=== PATIENT | male | born 1950 | race Caucasian/White ===

== ENCOUNTER → 2016-12-12 | Outpatient (CLI) | payer MEDICARE ==
--- NOTE | 2016-12-12 13:11 | NM ---
EXAMINATION TYPE: NM pul vent and perfuse DATE OF EXAM: 12/12/2016 COMPARISON: EXAMINATION TYPE: NM pul vent and perfuse DATE OF EXAM: 12/12/2016 COMPARISON: NONE HISTORY: R06.89 Difficulty Breathing TECHNIQUE: Utilizing inhalation of 37.6 mCi Tc 99m DTPA aerosol and intravenous injection of 5.5 mCi of Tc 99m MAA, ventilation and perfusion images are acquired post injection in multiple projections. FINDINGS: There is severe central accumulation of radiotracer on the ventilation portion of the study. Multiple matched ventilation/perfusion defects are identified on the perfusion portion of the study. No misma tch perfusion defects are seen. IMPRESSION: Intermediate probability for pulmonary embolism.
--- NOTE | 2016-12-12 13:36 | CT ---
EXAMINATION TYPE: CT chest wo con DATE OF EXAM: 12/12/2016 COMPARISON: Outside radiographs 12/12/2016 HISTORY: 66-year-old male difficulty breathing TECHNIQUE: Contiguous axial scanning of the chest without IV contrast. Coronal and sagittal reconstru ctions performed. CT DLP: 692 mGycm Automated exposure control for dose reduction was used. FINDINGS: The heart is normal size. There is small pericardial effusion. Coronary vessel calcifications are pre sent in remarkable for coronary artery disease. Aorta is normal caliber with a conventional arch vessel branching anatomy and mild atherosclerotic ca lcifications. Scattered nonenlarged mediastinal lymph nodes. No thoracic lymphadenopathy by CT size criteria. Mild diffuse bronchial wall thickening and mild centrilobular emphysema. There is some patchy density at the inferior lingula, likely some atelectasis. Otherwise, no consolidation or pleural effusion. Visualized upper abdomen shows 1.6 cm low-density nodularity of the left adrenal gland with density o f 8 Hounsfield units suggestive of a benign lipid rich adrenal adenoma. Moderate stool burden. Bones: Endplate spondylosis mid to lower thoracic spine. IMPRESSION: 1. COPD WITH MILD EMPHYSEMA. THERE IS SOME PATCHY ATELECTASIS OR MINIMAL EARLY INFILTRATE IN THE INFE RIOR [place]. 2. NOTE THAT AN INTERMEDIATE PROBABILITY FOR PULMONARY EMBOLUS RANGES FROM 20 TO 80%. IF THERE REMAIN S CLINICAL SUSPICION FOR PULMONARY EMBOLUS, RISK-BENEFIT ASSESSMENT TO WHETHER TO PROCEED WITH A C TA SHOULD BE MADE. 3. SMALL PERICARDIAL EFFUSION.
== END | disposition home or self-care (01) ==
LOC: RADNMMAIN 11:49
PROVIDERS: ATTEND Family Medicine
DX: J43.9 Emphysema, unspecified (principal); I31.3 Pericardial effusion (noninflammatory); R06.89 Other abnormalities of breathing
CPT/HCPCS: 71250; 78582; A9540; A9567

== ENCOUNTER 2016-12-16 12:30 | Inpatient (IN) | payer MEDICARE ==
[2016-12-16] MEDS ORDERED: SODIUM CHLORIDE 0.9% 500 ML IV STA (12:53)
--- NOTE | 2016-12-16 12:59 | ED ---
General Adult HPI - General Chief complaint: Recheck/Abnormal Lab/Rx Stated complaint: Severe Headache, Poss Blood Clot Time Seen by Provider: 12/16/16 12:30 Source: patient, family, RN notes reviewed Mode of arrival: wheelchair Limitations: no limitations - History of Present Illness Initial comments: This is a 66-year-old male who presents emergency Department complaining initially having abdominal pain a month ago and progressed into difficulty breathing and weakness. Over the last couple of weeks he is barely been eating according to his he continues to get weaker and weaker. Patient states she went to the doctor that they did some lab work had a CAT scan done and then the sifting operator showed up at his house today to tell him to come to the emergency department immediately. Patient states he continues to feel weak today but he would not come to the emergency department on his own. Patient states he also has been getting intermittent headaches over the last month. Patient doesn't know why he was sent to the emergency department. He currently complains of a mild headache and generalized weakness and loss of appetite. Patient states he is occasionally short of breath as well. - Related Data Home Medications Medication Instructions Recorded Confirmed Atenolol [Tenormin] 50 mg PO DAILY 12/16/16 12/16/16 Ciprofloxacin HCl [Cipro] 500 mg PO Q12HR 12/16/16 12/16/16 Allergies Allergy/AdvReac Type Severity Reaction Status Date / Time Iodinated Contrast- Oral and Allergy Nausea & Verified 12/16/16 13:02 IV Dye Vomiting Review of Systems ROS Statement: Those systems with pertinent positive or pertinent negative responses have been documented in the HPI. ROS Other: All systems not noted in ROS Statement are negative. Past Medical History Past Medical History: Chest Pain / Angina, Hyperlipidemia, Hypertension, Myocardial Infarction ([place]) History of Any Multi-Drug Resistant Organisms: None Reported Past Surgical History: Heart Catheterization With Stent, Joint Replacement, Orthopedic Surgery Past Psychological History: No Psychological Hx Reported Smoking Status: Former smoker Past Alcohol Use History: Occasional Past Drug Use History: None Reported General Exam - General Exam Comments Initial Comments: GENERAL: Patient is well-developed and well-nourished. Patient is nontoxic and well- hydrated and is in mild distress. ENT: Neck is soft and supple. No significant lymphadenopathy is noted. Oropharynx is clear. Moist mucous membranes. Neck has full range of motion without eliciting any pain. EYES: The sclera were anicteric and conjunctiva were pink and moist. Extraocular movements were intact and pupils were equal round and reactive to light. Eyelids were unremarkable. PULMONARY: Unlabored respirations. Good breath sounds bilaterally. No audible rales rhonchi or wheezing was noted. CARDIOVASCULAR: Patient has been irregular heartbeat and is tachycardic at about 130 beats minute ABDOMEN: Soft and nontender with normal bowel sounds. No palpable organomegaly was noted. There is no palpable pulsatile mass. SKIN: Skin is clear with no lesions or rashes and otherwise unremarkable. NEUROLOGIC: Patient is alert and oriented x3. Cranial nerves II through XII are grossly intact. Motor and sensory are also intact. Normal speech, volume and content. Symmetrical smile. MUSCULOSKELETAL: Normal extremities with adequate strength and full range of motion. No lower extremity swelling or edema. No calf tenderness. LYMPHATICS: No significant lymphadenopathy is noted PSYCHIATRIC: Normal psychiatric evaluation. Normal interpersonal interactions appears functionally intact in deals appropriately with others. No signs of depression. No signs of anxiety. Limitations: no limitations Course Vital Signs 12/16/16 12/16/16 12/16/16 12:31 13:03 13:45 Temperature 97.7 F Pulse Rate 82 136 H 134 H Respiratory 20 20 20 Rate Blood Pressure 105/68 138/97 156/92 O2 Sat by Pulse 97 94 L 96 Oximetry 12/16/16 14:04 Temperature Pulse Rate 126 H Respiratory 20 Rate Blood Pressure 132/77 O2 Sat by Pulse 98 Oximetry Medical Decision Making - Medical Decision Making EKG shows atrial flutter with a variable AV block with PVCs at a rate of 130 bpm Vipin on a 36 Q-T intervals 348 QTC is 527. Patient's EKG shows no ST segment elevation or depression. - Lab Data Result diagrams: 12/16/16 12:55 12/16/16 12:55 Lab Results 12/16/16 12/16/16 12/16/16 Range/Units 12:55 12:55 12:55 WBC 14.1 H (3.8-10.6) k/uL RBC 3.88 L (4.30-5.90) m/uL Hgb 11.5 L (13.0-17.5) gm/dL Hct 35.0 L (39.0-53.0) % MCV 90.4 (80.0-100.0) fL MCH 29.6 (25.0-35.0) pg MCHC 32.7 (31.0-37.0) g/dL RDW 13.6 (11.5-15.5) % Plt Count 504 H (150-450) k/uL Neutrophils % 88 % Lymphocytes % 7 % Monocytes % 4 % Eosinophils % 1 % Basophils % 0 % Neutrophils # 12.3 H (1.3-7.7) k/uL Lymphocytes # 1.0 (1.0-4.8) k/uL Monocytes # 0.5 (0-1.0) k/uL Eosinophils # 0.1 (0-0.7) k/uL Basophils # 0.0 (0-0.2) k/uL PT (9.0-12.0) sec INR (<1.2) APTT (22.0-30.0) sec D-Dimer (<0.60) mg/L FEU Sodium 141 (137-145) mmol/L Potassium 2.5 L* (3.5-5.1) mmol/L Chloride 96 L (98-107) mmol/L Carbon Dioxide 30 (22-30) mmol/L Anion Gap 15 mmol/L BUN 28 H (9-20) mg/dL Creatinine 0.83 (0.66-1.25) mg/dL Est GFR (MDRD) Af Amer >60 (>60 ml/min/1.73 sqM) Est GFR (MDRD) Non-Af >60 (>60 ml/min/1.73 sqM) Glucose 188 H (74-99) mg/dL Calcium 9.8 (8.4-10.2) mg/dL Magnesium 1.5 L (1.6-2.3) mg/dL Total Bilirubin 0.7 (0.2-1.3) mg/dL AST 35 (17-59) U/L ALT 97 H (21-72) U/L Alkaline Phosphatase 177 H (38-126) U/L Total Creatine Kinase 35 L (55-170) U/L CK-MB (CK-2) 1.6 (0.0-2.4) ng/mL CK-MB (CK-2) Rel Index 4.6 Troponin I 0.042 H* (0.000-0.034) ng/mL Total Protein 6.2 L (6.3-8.2) g/dL Albumin 3.2 L (3.5-5.0) g/dL 12/16/16 Range/Units 12:55 WBC (3.8-10.6) k/uL RBC (4.30-5.90) m/uL Hgb (13.0-17.5) gm/dL Hct (39.0-53.0) % MCV (80.0-100.0) fL MCH (25.0-35.0) pg MCHC (31.0-37.0) g/dL RDW (11.5-15.5) % Plt Count (150-450) k/uL Neutrophils % % Lymphocytes % % Monocytes % % Eosinophils % % Basophils % % Neutrophils # (1.3-7.7) k/uL Lymphocytes # (1.0-4.8) k/uL Monocytes # (0-1.0) k/uL Eosinophils # (0-0.7) k/uL Basophils # (0-0.2) k/uL PT 11.7 (9.0-12.0) sec INR 1.2 H (<1.2) APTT 24.4 (22.0-30.0) sec D-Dimer 1.25 H (<0.60) mg/L FEU Sodium (137-145) mmol/L Potassium (3.5-5.1) mmol/L Chloride (98-107) mmol/L Carbon Dioxide (22-30) mmol/L Anion Gap mmol/L BUN (9-20) mg/dL Creatinine (0.66-1.25) mg/dL Est GFR (MDRD) Af Amer (>60 ml/min/1.73 sqM) Est GFR (MDRD) Non-Af (>60 ml/min/1.73 sqM) Glucose (74-99) mg/dL Calcium (8.4-10.2) mg/dL Magnesium (1.6-2.3) mg/dL Total Bilirubin (0.2-1.3) mg/dL AST (17-59) U/L ALT (21-72) U/L Alkaline Phosphatase (38-126) U/L Total Creatine Kinase (55-170) U/L CK-MB (CK-2) (0.0-2.4) ng/mL CK-MB (CK-2) Rel Index Troponin I (0.000-0.034) ng/mL Total Protein (6.3-8.2) g/dL Albumin (3.5-5.0) g/dL Disposition Clinical Impression: Hypokalemia, Weakness, Anorexia Disposition: ADMITTED IP TO THIS HOSP Referrals: Kermit Scott MD [Primary Care Provider] - 1-2 days Time of Disposition: 15:32
[2016-12-16 13:12] LABS: Basophils % (A) 0 %; CH 30.3; CHCM 33.6; Eosinophils # (A) 0.1 k/uL (0-0.7); Eosinophils % (A) 1 %; HDW 3.04; HGB 11.5 gm/dL (13.0-17.5); Luc # (Auto) 0.19; Luc % (Auto) 1; Lymphocytes % (A) 7 %; MCH 29.6 pg (25.0-35.0); MCHC 32.7 g/dL (31.0-37.0); MCV 90.4 fL (80.0-100.0); Mean Platelet Volume 7.7; Monocytes # (A) 0.5 k/uL (0-1.0); Monocytes % (A) 4 %; Neutrophils # (A) 12.3 k/uL (1.3-7.7); Neutrophils % (A) 88 %; RBC 3.88 m/uL (4.30-5.90); RDW 13.6 % (11.5-15.5); WBC 14.1 k/uL (3.8-10.6); WBC (Perox) 14.63
[2016-12-16 13:22] LABS: INR 1.2 (<1.2); Partial Thromboplastin Time 24.4 sec (22.0-30.0); Prothrombin Time 11.7 sec (9.0-12.0)
--- NOTE | 2016-12-16 13:25 | XR ---
EXAMINATION TYPE: XR chest 2V DATE OF EXAM: 12/16/2016 COMPARISON: 12/12/2016 HISTORY: Weakness TECHNIQUE: Frontal and lateral views of the chest are obtained. FINDINGS: There is no heart failure nor confluent pneumonic infiltrate. There is suboptimal inspirat ion. There are chest leads. Costophrenic angles are clear. Bony thorax is intact. IMPRESSION: Poor inspiration. Otherwise negative exam. Inspiration is less than last exam.
[2016-12-16 13:31] LABS: ALT 97 U/L (21-72); AST 35 U/L (17-59); Alkaline Phosphatase 177 U/L (38-126); Anion Gap 15 mmol/L; Blood Urea Nitrogen 28 mg/dL (9-20); Calcium 9.8 mg/dL (8.4-10.2); Carbon Dioxide 30 mmol/L (22-30); Chloride 96 mmol/L (98-107); Glucose 188 mg/dL (74-99); Magnesium 1.5 mg/dL (1.6-2.3); Non-African American GFR(MDRD) >60 (>60 ml/min/1.73 sqM); Sodium 141 mmol/L (137-145); Total Bilirubin 0.7 mg/dL (0.2-1.3); Total Protein 6.2 g/dL (6.3-8.2)
[2016-12-16 13:38] LABS: Potassium 2.5 mmol/L (3.5-5.1)
[2016-12-16] MEDS ORDERED: POTASSIUM CHLORIDE ER 20 MEQ TAB.ER PO STA (13:40)
[2016-12-16] MEDS ORDERED: RX INFO: IV CONTRAST WAS GIVEN 1 EACH MISC MISCELLANE PRN (13:41)
[2016-12-16 13:48] LABS: Creatine Kinase MB 1.6 ng/mL (0.0-2.4)
[2016-12-16] MEDS ORDERED: FAMOTIDINE 20 MG/2 ML VIAL IV STA (13:49)
[2016-12-16] MEDS ORDERED: methylPREDNISolone SOD SUCCI 125 MG/2 ML VIAL IV STA (13:49)
[2016-12-16] MEDS ORDERED: diphenhydrAMINE 50 MG/ML 1 ML VIAL IVP STA (13:49)
[2016-12-16 13:51] LABS: Troponin I 0.042 ng/mL (0.000-0.034)
[2016-12-16] MEDS: POTASSIUM CHLORIDE 20 MEQ, LIDOCAINE 2% INJ 20 MG in SODIUM CHLORIDE 0.9% 100 ML IVPB SCH ×2 (14:00→16:20)
--- NOTE | 2016-12-16 14:44 | CT ---
EXAMINATION TYPE: CT chest angio for PE DATE OF EXAM: 12/16/2016 COMPARISON: NONE HISTORY: Patient poor historian. Patient unresponsive at time of exam. CT DLP: 387 mGycm Automated exposure control for dose reduction was used. CONTRAST: CT Chest for pulmonary embolism performed with with IV Contrast, patient injected with 100 mL of Omni paque 300. FINDINGS: There are 3-D post processed images. There is no pleural effusion. Lungs are clear of consolidation. Heart is enlarged. I see no definite filling defects in the pulmonary arteries. There are a few mediastinal lymph nodes that measure up to 1 cm. Thoracic aorta is atheromatous. There is no evidence of aneurysm. There are no hilar masses. IMPRESSION: No evidence of pulmonary embolism. Cardiomegaly. Mild fibrotic changes at the lung bases. Cardiomegal y.
[2016-12-16] MEDS ORDERED: SODIUM CHLORIDE 0.9% 1,000 ML IV ONE (15:32)
[2016-12-16 15:52] LABS: Appearance,Urine Clear (Clear); Bilirubin,Urine Negative (Negative); Glucose,Urine (UA) Negative (Negative); Ketones,Urine Negative (Negative); Leukocyte Esterase,Urine Negative (Negative); Nitrite,Urine Negative (Negative); PH, Urine 6.5 (5.0-8.0); Protein,Urine Negative (Negative); Specific Gravity,Urine 1.044 (1.001-1.035); UA Billing (MACRO vs. MICRO) CHEM; Urobilinogen,Urine <2.0 mg/dL (<2.0)
--- NOTE | 2016-12-16 16:04 | CT ---
EXAMINATION TYPE: CT brain wo con DATE OF EXAM: 12/16/2016 COMPARISON: NONE HISTORY: Patient complains of headache. CT DLP: 802.7 mGycm Automated exposure control for dose reduction was used. FINDINGS: There is some cerebral cortical atrophy. There is moderate patchy hypodensity in the periventricular white matter. There is no mass effect nor midline shift. There is no sign of intracranial hemorrhage. The calvarium is intact. There is mild mucosal thickening in the ethmoid air cells. There is mucosal thickening in left maxillary sinus. IMPRESSION: CEREBRAL ATROPHY AND CHRONIC SMALL VESSEL ISCHEMIA. 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 MILD SINUSITIS.
[2016-12-16] MEDS ORDERED: IPRATROPIUM-ALBUTEROL 3 ML NEB INHALATION PRN (19:14)
--- NOTE | 2016-12-16 19:55 | US ---
EXAMINATION TYPE: US abdomen complete DATE OF EXAM: 12/16/2016 COMPARISON: NONE CLINICAL HISTORY: no appetite, abdominal discomfort. larger habitus EXAM MEASUREMENTS: Liver Length: 21.1 cm Gallbladder Wall: 0.2 cm CBD: 0.4 cm Spleen: 12.7 cm Right Kidney: 11.9 x 5.4 x 5.5 cm Left Kidney: 12.7 x 6.7 x 5.2 cm Some exam limitations, stat portable, pt ate about 2 1/2 hrs ago. Increased bowel gas. Pancreas: Obscured by bowel gas Liver: hepatomegaly Gallbladder: not distended, pt not npo, there are a couple small polyps wall thickening is not prese nt. Wall echo shadow however may be present. Clinical correlation for acute cholecystitis is recommen ded. Negative sonographic Guadarrama's sign suggests this may not be present. Evidence for sonographic Guadarrama's sign: no CBD: wnl Spleen: wnl Right Kidney: wnl Left Kidney: some cortical lobulation otherwise wnl Upper IVC: wnl Abd Aorta: Obscured by overlying bowel gas IMPRESSION: 1. There may be a wall echo shadow complex within the gallbladder wall. However gallbladder wall thic kening or Guadarrama's sign are not evident. Clinical correlation is recommended for cholecystitis. This may be incompletely distended gallbladder. 2. Couple small polyps may be within the gallbladder.
[2016-12-16 20:01] LABS: Creatine Kinase MB 1.3 ng/mL (0.0-2.4)
[2016-12-16 20:03] LABS: Troponin I 0.045 ng/mL (0.000-0.034)
--- NOTE | 2016-12-16 20:05 | P.CON ---
Consult Note - . Consult date: 12/16/16 Assessment/Plan:: *Live* [facility] [address], [place] [address] General Medical Problem Patient Name: Jaskaran Hess Date of : 1950 Patient Status: Inpatient Attending Provider: Riley Ornelas General Adult HPI - General Chief complaint: Abdominal discomfort and pain started 4 weeks ago lately has been having more shortness of breath with cough started a week ago Source: patient, family, emergency department notes reviewed Limitations: no limitations - History of Present Illness Initial comments: This is a 66-year-old male who presents emergency Department complaining initially having abdominal pain a month ago and progressed into difficulty breathing and weakness. Over the last couple of weeks he is barely been eating according to his he continues to get weaker and weaker. Patient states she went to the doctor that they did some lab work had a CAT scan done and then the showed up at his house today to tell him to come to the emergency department immediately. Patient states he continues to feel weak today but he would not come to the emergency department on his own. Patient states he also has been getting intermittent headaches over the last month. Patient doesn't know why he was sent to the emergency department. He currently complains of a mild headache and generalized weakness and loss of appetite. Patient states he is occasionally short of breath as well. Patient however has been seen by a primary care provider Dr. Scott 3 or 4 days ago lab works were ordered the labs were noted to be abnormal and patient was advised to go to the emergency department however it appears that there was no response and the tar and ammonia pump operator's office was called. 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 Patient also consumed extensive amount of alcohol on a daily basis . Patient expresses that he is usually not interested in medical care and does not like to take medications In addition to above the patient feels that his tummy is more swelling than usual and is compressing the chest and causing him to be more short of breath. His pain is predominantly in the lower part of the abdomen bilaterally he denies any nausea vomiting or diarrhea does have some cough with clear thick sputum production, denies any headache now desired denies any night sweats or fever or chills he did loss close to about 10-15 pounds in last 1 month he denies any dizziness lightheadedness but does feel very weak in general, patient also has been consuming very small amount of food lately and usually the morning he 1 meal a day - Related Data Home Medications Medication Instructions Recorded Confirmed Atenolol [Tenormin] 50 mg PO DAILY 12/16/16 12/16/16 Ciprofloxacin HCl [Cipro] 500 mg PO Q12HR 12/16/16 12/16/16 Allergies Allergy/AdvReac Type Severity Reaction Status Date / Time Iodinated Contrast- Oral and Allergy Nausea & Verified 12/16/16 13:02 IV Dye Vomiting Review of Systems ROS Statement: Those systems with pertinent positive or pertinent negative responses have been documented in the HPI. ROS Other: All systems not noted in ROS Statement are negative. Past Medical History Past Medical History: Chest Pain / Angina, Hyperlipidemia, Hypertension, Myocardial Infarction ([place]) History of Any Multi-Drug Resistant Organisms: None Reported Past Surgical History: Heart Catheterization With Stent, Joint Replacement, Orthopedic Surgery Past Psychological History: No Psychological Hx Reported Smoking Status: Former smoker, smoked about 1-2 packs per day for over 45-50 years Past Alcohol Use History: Regular, denies any substance use Past Drug Use History: None Reported General Exam GENERAL: Patient is well-developed and well-nourished. Patient is nontoxic and well- hydrated and is in mild distress. ENT: Neck is soft and supple. No significant lymphadenopathy is noted. Oropharynx is clear. Moist mucous membranes. Neck has full range of motion without eliciting any pain. EYES: The sclera were anicteric and conjunctiva were pink and moist. Extraocular movements were intact and pupils were equal round and reactive to light. Eyelids were unremarkable. PULMONARY: Unlabored respirations. Good breath sounds bilaterally. Bilateral audible rhonchi and wheezing was noted during both inspiratory and expiratory phase. CARDIOVASCULAR: Patient has been irregular heartbeat and is tachycardic at about 130 beats minute ABDOMEN: Soft and nontender with normal bowel sounds. No palpable organomegaly was noted. There is no palpable pulsatile mass. SKIN: Skin is clear with no lesions or rashes and otherwise unremarkable. NEUROLOGIC: Patient is alert and oriented x3. Cranial nerves II through XII are grossly intact. Motor and sensory are also intact. Normal speech, volume and content. Symmetrical smile. MUSCULOSKELETAL: Normal extremities with adequate strength and full range of motion. No lower extremity swelling or edema. No calf tenderness. LYMPHATICS: No significant lymphadenopathy is noted PSYCHIATRIC: Normal psychiatric evaluation. Normal interpersonal interactions appears functionally intact in deals appropriately with others. No signs of depression. No signs of anxiety. Limitations: no limitations Course Vital Signs 12/16/16 12/16/16 12/16/16 12:31 13:03 13:45 Temperature 97.7 F Pulse Rate 82 136 H 134 H Respiratory 20 20 20 Rate Blood Pressure 105/68 138/97 156/92 O2 Sat by Pulse 97 94 L 96 Oximetry 12/16/16 14:04 Temperature Pulse Rate 126 H Respiratory 20 Rate Blood Pressure 132/77 O2 Sat by Pulse 98 Oximetry EKG shows atrial flutter with a variable AV block with PVCs at a rate of 130 bpm Vipin on a 36 Q-T intervals 348 QTC is 527. Patient's EKG shows no ST segment elevation or depression. - Lab Data Result diagrams: 12/16/16 12:55 12/16/16 12:55 Lab Results 12/16/16 12/16/16 12/16/16 Range/Units 12:55 12:55 12:55 WBC 14.1 H (3.8-10.6) k/uL RBC 3.88 L (4.30-5.90) m/uL Hgb 11.5 L (13.0-17.5) gm/dL Hct 35.0 L (39.0-53.0) % MCV 90.4 (80.0-100.0) fL MCH 29.6 (25.0-35.0) pg MCHC 32.7 (31.0-37.0) g/dL RDW 13.6 (11.5-15.5) % Plt Count 504 H (150-450) k/uL Neutrophils % 88 % Lymphocytes % 7 % Monocytes % 4 % Eosinophils % 1 % Basophils % 0 % Neutrophils # 12.3 H (1.3-7.7) k/uL Lymphocytes # 1.0 (1.0-4.8) k/uL Monocytes # 0.5 (0-1.0) k/uL Eosinophils # 0.1 (0-0.7) k/uL Basophils # 0.0 (0-0.2) k/uL PT (9.0-12.0) sec INR (<1.2) APTT (22.0-30.0) sec D-Dimer (<0.60) mg/L FEU Sodium 141 (137-145) mmol/L Potassium 2.5 L* (3.5-5.1) mmol/L Chloride 96 L (98-107) mmol/L Carbon Dioxide 30 (22-30) mmol/L Anion Gap 15 mmol/L BUN 28 H (9-20) mg/dL Creatinine 0.83 (0.66-1.25) mg/dL Est GFR (MDRD) Af Amer >60 (>60 ml/min/1.73 sqM) Est GFR (MDRD) Non-Af >60 (>60 ml/min/1.73 sqM) Glucose 188 H (74-99) mg/dL Calcium 9.8 (8.4-10.2) mg/dL Magnesium 1.5 L (1.6-2.3) mg/dL Total Bilirubin 0.7 (0.2-1.3) mg/dL AST 35 (17-59) U/L ALT 97 H (21-72) U/L Alkaline Phosphatase 177 H (38-126) U/L Total Creatine Kinase 35 L (55-170) U/L CK-MB (CK-2) 1.6 (0.0-2.4) ng/mL CK-MB (CK-2) Rel Index 4.6 Troponin I 0.042 H* (0.000-0.034) ng/mL Total Protein 6.2 L (6.3-8.2) g/dL Albumin 3.2 L (3.5-5.0) g/dL 12/16/16 Range/Units 12:55 WBC (3.8-10.6) k/uL RBC (4.30-5.90) m/uL Hgb (13.0-17.5) gm/dL Hct (39.0-53.0) % MCV (80.0-100.0) fL MCH (25.0-35.0) pg MCHC (31.0-37.0) g/dL RDW (11.5-15.5) % Plt Count (150-450) k/uL Neutrophils % % Lymphocytes % % Monocytes % % Eosinophils % % Basophils % % Neutrophils # (1.3-7.7) k/uL Lymphocytes # (1.0-4.8) k/uL Monocytes # (0-1.0) k/uL Eosinophils # (0-0.7) k/uL Basophils # (0-0.2) k/uL PT 11.7 (9.0-12.0) sec INR 1.2 H (<1.2) APTT 24.4 (22.0-30.0) sec D-Dimer 1.25 H (<0.60) mg/L FEU Sodium (137-145) mmol/L Potassium (3.5-5.1) mmol/L Chloride (98-107) mmol/L Carbon Dioxide (22-30) mmol/L Anion Gap mmol/L BUN (9-20) mg/dL Creatinine (0.66-1.25) mg/dL Est GFR (MDRD) Af Amer (>60 ml/min/1.73 sqM) Est GFR (MDRD) Non-Af (>60 ml/min/1.73 sqM) Glucose (74-99) mg/dL Calcium (8.4-10.2) mg/dL Magnesium (1.6-2.3) mg/dL Total Bilirubin (0.2-1.3) mg/dL AST (17-59) U/L ALT (21-72) U/L Alkaline Phosphatase (38-126) U/L Total Creatine Kinase (55-170) U/L CK-MB (CK-2) (0.0-2.4) ng/mL CK-MB (CK-2) Rel Index Troponin I (0.000-0.034) ng/mL Total Protein (6.3-8.2) g/dL Albumin (3.5-5.0) g/dL Clinical Impression: Acute COPD exacerbation Severe generalized weakness likely related to Hypokalemia, and intravascular volume depletion and dehydration Weakness, Anorexia, weight loss Electrolyte imbalance with hypomagnesemia Abnormal liver enzymes with elevated alk phos, SIRS-like process associated with multiple factors like dehydration volume depletion acute COPD exacerbation and electrolyte imbalance, her current sepsis cannot be excluded History of alcohol consumption with borderline hyperglycemia Plan includes to gentle rehydration replace electrolytes including potassium and magnesium, patient will be started him Broad-spectrum antibiotics with IV Levaquin and breathing treatments and steroids, we'll repeat the labs tomorrow ultrasound of the abdomen is being ordered him a day evaluated for sepsis and cultures including urine and blood is being ordered as well we'll follow closely
[2016-12-16] MEDS: BUDESONIDE 0.5 MG/2 ML NEBU INHALATION SCH (20:26)
[2016-12-16] MEDS: IPRATROPIUM-ALBUTEROL 3 ML NEB INHALATION SCH (20:26)
[2016-12-16] MEDS: MAGNESIUM SULFATE-D5W PMX 1 GM in DEXTROSE/WATER 1 100ML.BAG IVPB SCH ×2 (20:39→21:37)
[2016-12-16 21:02] LABS: Glucose,Whole Blood 352 mg/dL (75-99)
[2016-12-16] MEDS ORDERED: INSULIN LISPRO (humaLOG) 300 UNIT/3 ML VIAL SQ ONE (21:32)
[2016-12-16] MEDS: 0.9% NACL WITH KCL 20 MEQ/L 1,000 ML IV SCH (21:36)
[2016-12-16] MEDS: INSULIN LISPRO (humaLOG) 300 UNIT/3 ML VIAL SQ SCH (21:42)
[2016-12-16] MEDS: INSULIN GLARGINE 100 UNIT/ML 10 ML VIAL SQ SCH (21:51)
[2016-12-16] MEDS: LEVOFLOXACIN 500MG-D5W PMX 500 MG in DEXTROSE/WATER 1 100ML.BAG IVPB SCH (22:43)
[2016-12-16] MEDS: methylPREDNISolone SOD SUCCI 40 MG/ML 1 ML VIAL IV SCH (23:25)
[2016-12-17 02:09] LABS: Glucose,Whole Blood 169 mg/dL (75-99)
[2016-12-17 03:46] LABS: Basophils % (A) 0 %; CH 29.9; CHCM 32.3; Eosinophils % (A) 0 %; HCT 32.4 % (39.0-53.0); HGB 10.2 gm/dL (13.0-17.5); Luc # (Auto) 0.05; Luc % (Auto) 1; Lymphocytes # (A) 0.6 k/uL (1.0-4.8); Lymphocytes % (A) 6 %; MCH 29.3 pg (25.0-35.0); MCHC 31.6 g/dL (31.0-37.0); MCV 92.9 fL (80.0-100.0); Mean Platelet Volume 7.9; Monocytes # (A) 0.3 k/uL (0-1.0); Monocytes % (A) 3 %; Neutrophils # (A) 9.8 k/uL (1.3-7.7); Neutrophils % (A) 91 %; RBC 3.48 m/uL (4.30-5.90); RDW 13.6 % (11.5-15.5); WBC 10.7 k/uL (3.8-10.6); WBC (Perox) 11.27
[2016-12-17 03:56] LABS: Anion Gap 12 mmol/L; Blood Urea Nitrogen 30 mg/dL (9-20); Calcium 9.3 mg/dL (8.4-10.2); Carbon Dioxide 29 mmol/L (22-30); Chloride 100 mmol/L (98-107); Glucose 187 mg/dL (74-99); Magnesium 2.2 mg/dL (1.6-2.3); Non-African American GFR(MDRD) >60 (>60 ml/min/1.73 sqM); Phosphorous 2.8 mg/dL (2.5-4.5); Sodium 141 mmol/L (137-145)
[2016-12-17] MEDS ORDERED: Potassium Replacement Protocol 1 EACH MISC MISCELLANE PRN ×2 (05:14→10:47)
[2016-12-17 06:00] LABS: Glucose,Whole Blood 161 mg/dL (75-99)
[2016-12-17] MEDS: POTASSIUM CHLORIDE ER 20 MEQ TAB.ER PO SCH ×2 (06:00→06:58)
[2016-12-17] MEDS: 0.9% NACL WITH KCL 20 MEQ/L 1,000 ML IV SCH ×3 (06:01→23:34)
[2016-12-17] MEDS: INSULIN LISPRO (humaLOG) 300 UNIT/3 ML VIAL SQ SCH ×4 (06:59→21:44)
[2016-12-17] MEDS: IPRATROPIUM-ALBUTEROL 3 ML NEB INHALATION SCH ×4 (07:05→19:34)
[2016-12-17] MEDS: BUDESONIDE 0.5 MG/2 ML NEBU INHALATION SCH ×2 (07:05→19:35)
[2016-12-17] MEDS: methylPREDNISolone SOD SUCCI 40 MG/ML 1 ML VIAL IV SCH ×3 (08:33→23:32)
[2016-12-17 11:31] LABS: Glucose,Whole Blood 333 mg/dL (75-99)
[2016-12-17] MEDS ORDERED: LORazepam 2 MG/ML SYRINGE IV PRN ×3 (11:34)
[2016-12-17] MEDS ORDERED: THIAMINE 100 MG/ML 2 ML VIAL IM STA (11:34)
--- NOTE | 2016-12-17 11:48 | P.PN ---
Subjective 12/16/16- This is a 66-year-old male who presents emergency Department complaining initially having abdominal pain a month ago and progressed into difficulty breathing and weakness. Over the last couple of weeks he is barely been eating according to his he continues to get weaker and weaker. Patient states she went to the doctor that they did some lab work had a CAT scan done and then the seam steamer showed up at his house today to tell him to come to the emergency department immediately. Patient states he continues to feel weak today but he would not come to the emergency department on his own. Patient states he also has been getting intermittent headaches over the last month. Patient doesn't know why he was sent to the emergency department. He currently complains of a mild headache and generalized weakness and loss of appetite. Patient states he is occasionally short of breath as well. Patient however has been seen by a primary care provider Dr. Scott 3 or 4 days ago lab works were ordered the labs were noted to be abnormal and patient was advised to go to the emergency department however it appears that there was no response and the 's office was called. 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 Patient also consumed extensive amount of alcohol on a daily basis . Patient expresses that he is usually not interested in medical care and does not like to take medications In addition to above the patient feels that his tummy is more swelling than usual and is compressing the chest and causing him to be more short of breath. His pain is predominantly in the lower part of the abdomen bilaterally he denies any nausea vomiting or diarrhea does have some cough with clear thick sputum production, denies any headache now desired denies any night sweats or fever or chills he did loss close to about 10-15 pounds in last 1 month he denies any dizziness lightheadedness but does feel very weak in general, patient also has been consuming very small amount of food lately and usually the morning he 1 meal a day 12/17/16- this patient is being seen examined and evaluated today on the selective care unit. The patient states he feels slightly better however he appears weaker than yesterday. Labs and reports have been reviewed patient's potassium is currently being replaced, for level of 3.0. Currently he is resting up in bed on room air, does show signs of shortness of breath with exertion. Denies any cough or congestion at this time. Family at bedside and updated plan of care. Education was provided to the patient at length about medical treatment, patient states he would like to go home however it is advised that he stay in the hospital as he is not well enough at this time. Of no abdominal ultrasound has been reviewed and there is a shadow in the gallbladder wall clinical correlation is recommended for cholecystitis, polyps also noted within the gallbladder, surgical will be consulted. Objective - Vital Signs Vital signs: Vital Signs Temp 97.5 F L 12/17/16 08:00 Pulse 72 12/17/16 11:16 Resp 16 12/17/16 11:21 BP 99/53 12/17/16 08:00 Pulse Ox 94 L 12/17/16 08:00 Intake & Output 12/16/16 12/17/16 12/17/16 18:59 06:59 18:59 Intake Total 300 240 Output Total 400 400 Balance -100 -160 Weight 88.451 kg 86.4 kg 86.4 kg Intake: Intake, IV Titration 300 Amount Levofloxacin 500Mg-D5w 100 Pmx 500 mg In Dextrose/ Water 1 100ml.bag @ 100 mls/hr IVPB Q24H [facility] Rx#: [id number] Magnesium Sulfate-D5w Pmx 200 1 gm In Dextrose/Water 1 100ml.bag @ 100 mls/hr IVPB Q1H [facility] Rx#: [id number] Oral 240 Output: Urine 400 400 - Exam GENERAL EXAM: Alert, weak, comfortable in no apparent distress. HEAD: Normocephalic. EYES: Normal reaction of pupils, equal size. NOSE: Clear with pink turbinates. THROAT: No erythema or exudates. NECK: No masses, no JVD. CHEST: No chest wall deformity. LUNGS: Equal air entry, some expiratory wheezes scattered. Bases diminished.. CVS: S1 and S2 normal with no audible mumurs, regular rhythm. ABDOMEN: No hepatosplenomegaly, normal bowel sounds, no guarding or rigidity. EXTREMITIES: No edema noted, pedal pulses palpable. SKIN: No rashes CENTRAL NERVOUS SYSTEM: No focal deficits, tone is normal in all 4 extremities. - Labs CBC & Chem 7: 12/17/16 03:40 12/17/16 08:14 Labs: Abnormal Lab Results - Last 24 Hours (Table) 12/16/16 12/16/16 12/16/16 Range/Units 12:55 12:55 12:55 WBC 14.1 H (3.8-10.6) k/uL RBC 3.88 L (4.30-5.90) m/uL Hgb 11.5 L (13.0-17.5) gm/dL Hct 35.0 L (39.0-53.0) % Plt Count 504 H (150-450) k/uL Neutrophils # 12.3 H (1.3-7.7) k/uL Lymphocytes # (1.0-4.8) k/uL INR (<1.2) D-Dimer (<0.60) mg/L FEU Potassium 2.5 L* (3.5-5.1) mmol/L Chloride 96 L (98-107) mmol/L BUN 28 H (9-20) mg/dL Glucose 188 H (74-99) mg/dL POC Glucose (mg/dL) (75-99) mg/dL Magnesium 1.5 L (1.6-2.3) mg/dL ALT 97 H (21-72) U/L Alkaline Phosphatase 177 H (38-126) U/L Total Creatine Kinase 35 L (55-170) U/L Troponin I 0.042 H* (0.000-0.034) ng/mL Total Protein 6.2 L (6.3-8.2) g/dL Albumin 3.2 L (3.5-5.0) g/dL Ur Specific [place] (1.001-1.035) 12/16/16 12/16/16 12/16/16 Range/Units 12:55 15:35 19:13 WBC (3.8-10.6) k/uL RBC (4.30-5.90) m/uL Hgb (13.0-17.5) gm/dL Hct (39.0-53.0) % Plt Count (150-450) k/uL Neutrophils # (1.3-7.7) k/uL Lymphocytes # (1.0-4.8) k/uL INR 1.2 H (<1.2) D-Dimer 1.25 H (<0.60) mg/L FEU Potassium (3.5-5.1) mmol/L Chloride (98-107) mmol/L BUN (9-20) mg/dL Glucose (74-99) mg/dL POC Glucose (mg/dL) (75-99) mg/dL Magnesium (1.6-2.3) mg/dL ALT (21-72) U/L Alkaline Phosphatase (38-126) U/L Total Creatine Kinase (55-170) U/L Troponin I 0.045 H* (0.000-0.034) ng/mL Total Protein (6.3-8.2) g/dL Albumin (3.5-5.0) g/dL Ur Specific [place] 1.044 H (1.001-1.035) 12/16/16 12/17/16 12/17/16 Range/Units 21:01 01:20 02:06 WBC (3.8-10.6) k/uL RBC (4.30-5.90) m/uL Hgb (13.0-17.5) gm/dL Hct (39.0-53.0) % Plt Count (150-450) k/uL Neutrophils # (1.3-7.7) k/uL Lymphocytes # (1.0-4.8) k/uL INR (<1.2) D-Dimer (<0.60) mg/L FEU Potassium (3.5-5.1) mmol/L Chloride (98-107) mmol/L BUN (9-20) mg/dL Glucose (74-99) mg/dL POC Glucose (mg/dL) 352 H 169 H (75-99) mg/dL Magnesium (1.6-2.3) mg/dL ALT (21-72) U/L Alkaline Phosphatase (38-126) U/L Total Creatine Kinase (55-170) U/L Troponin I 0.037 H* (0.000-0.034) ng/mL Total Protein (6.3-8.2) g/dL Albumin (3.5-5.0) g/dL Ur Specific [place] (1.001-1.035) 12/17/16 12/17/16 12/17/16 Range/Units 03:40 03:40 05:57 WBC 10.7 H (3.8-10.6) k/uL RBC 3.48 L (4.30-5.90) m/uL Hgb 10.2 L (13.0-17.5) gm/dL Hct 32.4 L (39.0-53.0) % Plt Count (150-450) k/uL Neutrophils # 9.8 H (1.3-7.7) k/uL Lymphocytes # 0.6 L (1.0-4.8) k/uL INR (<1.2) D-Dimer (<0.60) mg/L FEU Potassium 3.0 L* (3.5-5.1) mmol/L Chloride (98-107) mmol/L BUN 30 H (9-20) mg/dL Glucose 187 H (74-99) mg/dL POC Glucose (mg/dL) 161 H (75-99) mg/dL Magnesium (1.6-2.3) mg/dL ALT (21-72) U/L Alkaline Phosphatase (38-126) U/L Total Creatine Kinase (55-170) U/L Troponin I (0.000-0.034) ng/mL Total Protein (6.3-8.2) g/dL Albumin (3.5-5.0) g/dL Ur Specific [place] (1.001-1.035) / Range/Units 08:14 WBC (3.8-10.6) k/uL RBC (4.30-5.90) m/uL Hgb (13.0-17.5) gm/dL Hct (39.0-53.0) % Plt Count (150-450) k/uL Neutrophils # (1.3-7.7) k/uL Lymphocytes # (1.0-4.8) k/uL INR (<1.2) D-Dimer (<0.60) mg/L FEU Potassium 3.3 L (3.5-5.1) mmol/L Chloride (98-107) mmol/L BUN (9-20) mg/dL Glucose (74-99) mg/dL POC Glucose (mg/dL) (75-99) mg/dL Magnesium (1.6-2.3) mg/dL ALT (21-72) U/L Alkaline Phosphatase (38-126) U/L Total Creatine Kinase (55-170) U/L Troponin I (0.000-0.034) ng/mL Total Protein (6.3-8.2) g/dL Albumin (3.5-5.0) g/dL Ur Specific [place] (1.001-1.035) Assessment and Plan Plan: Assessment Acute COPD exacerbation Severe generalized weakness likely related to Hypokalemia, and intravascular volume depletion and dehydration Weakness, Anorexia, weight loss Electrolyte imbalance with hypomagnesemia Abnormal liver enzymes with elevated alk phos, SIRS-like process associated with multiple factors like dehydration volume depletion acute COPD exacerbation and electrolyte imbalance, her current sepsis cannot be excluded History of alcohol consumption with borderline hyperglycemia Impending DTs related to alcohol dependence Plan Medications have been reviewed and will be continued as ordered. Antibiotics and steroids as ordered, we will decrease the steroids today. All labs and reports have been reviewed. We will maintain the patient on [facility] protocol for impending DTs. Continue with pulmonary hygiene, coughing and deep breathing exercises, and supportive care. Supplemental oxygen to maintain oxygen saturations of 92% or better. Continue nebulizer treatments. GI and DVT prophylaxis. Physical therapy has been consult it. Surgical services will be consult it for acute cholecystitis. We will continue to monitor labs/results and adjust treatment as necessary. Further recommendations pending. I performed an examination of the patient and discussed their management with the nurse practitioner. I have reviewed the nurse practitioner's note and agree with the documented findings and plan of care.
[2016-12-17] MEDS: PANTOPRAZOLE 40 MG/10 ML VIAL IVP SCH (12:09)
[2016-12-17] MEDS: POTASSIUM CHLORIDE 10 MEQ in WATER FOR INJECTION 1 100ML.BAG IVPB SCH ×2 (12:09→15:58)
[2016-12-17] MEDS: MULTIVITAMINS, THERA 1 EACH TAB PO SCH (12:09)
--- NOTE | 2016-12-17 14:17 | P.GSCN ---
History of Present Illness Consult date: 12/17/16 History of present illness: Patient presents with a history of loss in appetite. he had headacehs , lower abdominal pain. Painn was mild to moderate, not changed by anything. The pain has now reduced. No diarrhea but has constipation, no hematochezia, melena, hematmeisis, No loss of weight. He has had headaches that have healed changes. His overall was feeling very weak and use to have a very good appetite.*Give a history of recent colonoscopy. Does not give a history of jaundice or icterus. Does not give a history of current chest pain. He was having difficulty in breathing with a strong previous history of COPD. At this point he says he is completely pain-free without any abdominal pain whatsoever is no nausea no vomiting he is eating well Review of Systems - Constitutional Denies anorexia, Denies chills, Denies chronic headaches, Denies fever - EENT Eyes: denies blurred vision - Cardiovascular Denies chest pain, Denies shortness of breath - Respiratory Denies cough - Gastrointestinal Denies abdominal pain - Musculoskeletal Denies arm numbness/tingling, Denies fractures, Denies frequent falls, Denies gait dysfunction - Integumentary Denies rash, Denies unusual bruising - Neurological Denies headaches, Denies syncope - Psychiatric Denies anhedonia, Denies anxiety, Denies hypersomnia, Denies insomnia - Endocrine Endocrine Comment(s): Hyperglycemia Denies cold intolerance, Denies deepening of the voice - Hematologic/Lymphatic Denies easy bleeding, Denies easy bruising - Allergic/Immunologic Denies allergic rhinitis, Denies anaphylaxis, Denies angioedema Past Medical History Past Medical History: Chest Pain / Angina, Hyperlipidemia, Hypertension, Myocardial Infarction (MA) Last Myocardial Infarction Date:: 1994 History of Any Multi-Drug Resistant Organisms: None Reported Past Surgical History: Heart Catheterization With Stent, Joint Replacement, Orthopedic Surgery Past Anesthesia/Blood Transfusion Reactions: No Reported Reaction Date of Last Stent Placement:: unknown Past Psychological History: No Psychological Hx Reported Smoking Status: Former smoker Past Alcohol Use History: Occasional Additional Past Alcohol Use History / Comment(s): patient states he drank a fifth and a half of whiskey per week, stopped completely 2 weeks ago. Past Drug Use History: None Reported - Past Family History Mother Family Medical History: Cancer, Pulmonary Embolus Additional Family Medical History / Comment(s): blood cancer, unsure of type, 1978 Father Family Medical History: Cancer, COPD Additional Family Medical History / Comment(s): Lung Cancer, 1997 Brother(s) Family Medical History: Hypertension, Myocardial Infarction ([place]) Additional Family Medical History / Comment(s): #1 stroke, 1988. #2 MA , 2013 Sister(s) Family Medical History: Diabetes Mellitus, Hypertension Medications and Allergies Home Medications Medication Instructions Recorded Confirmed Type Atenolol [Tenormin] 50 mg PO DAILY 12/16/16 12/16/16 History Ciprofloxacin HCl [Cipro] 500 mg PO Q12HR 12/16/16 12/16/16 History Allergies Allergy/AdvReac Type Severity Reaction Status Date / Time Iodinated Contrast- Oral and Allergy Nausea & Verified 12/16/16 13:02 IV Dye Vomiting onion Allergy Anaphylaxis Verified 12/16/16 19:38 shellfish derived [Shellfish] Allergy Anaphylaxis Verified 12/16/16 19:37 Surgical - Exam Vital Signs Temp Pulse Resp BP Pulse Ox 97.7 F 82 20 105/68 97 12/16/16 12:31 12/16/16 12:31 12/16/16 12:31 12/16/16 12:31 12/16/16 12:31 - General well developed, well nourished, no distress - Eyes PERRL, normal ocular movement - ENT normal pinna, normal nares, normal mucosa - Neck no masses - Respiratory normal expansion, normal respiratory effort - Cardiovascular Warm extremities Rhythm: regular - Abdomen Abdomen: soft, non tender, no organomegaly, no surgical scars, no wound, no masses, no rigid, no rebound, no distended Hernia: none, inguinal - Integumentary no rash, no growths, no abnormal pigmentation - Neurologic normal coordination, normal sensation - Musculoskeletal normal gait, normal posture - Psychiatric oriented to time, oriented to person, oriented to place, speech is normal Results - Labs 12/17/16 03:40 12/17/16 08:14 Abnormal Lab Results - Last 24 Hours (Table) 12/16/16 12/16/16 12/16/16 Range/Units 15:35 19:13 19:13 WBC (3.8-10.6) k/uL RBC (4.30-5.90) m/uL Hgb (13.0-17.5) gm/dL Hct (39.0-53.0) % Neutrophils # (1.3-7.7) k/uL Lymphocytes # (1.0-4.8) k/uL Potassium (3.5-5.1) mmol/L BUN (9-20) mg/dL Glucose (74-99) mg/dL POC Glucose (mg/dL) (75-99) mg/dL Hemoglobin A1c 7.0 H (4.2-6.1) % Troponin I 0.045 H* (0.000-0.034) ng/mL Ur Specific [place] 1.044 H (1.001-1.035) 12/16/16 12/17/16 12/17/16 Range/Units 21:01 01:20 02:06 WBC (3.8-10.6) k/uL RBC (4.30-5.90) m/uL Hgb (13.0-17.5) gm/dL Hct (39.0-53.0) % Neutrophils # (1.3-7.7) k/uL Lymphocytes # (1.0-4.8) k/uL Potassium (3.5-5.1) mmol/L BUN (9-20) mg/dL Glucose (74-99) mg/dL POC Glucose (mg/dL) 352 H 169 H (75-99) mg/dL Hemoglobin A1c (4.2-6.1) % Troponin I 0.037 H* (0.000-0.034) ng/mL Ur Specific [place] (1.001-1.035) 12/17/16 12/17/16 12/17/16 Range/Units 03:40 03:40 05:57 WBC 10.7 H (3.8-10.6) k/uL RBC 3.48 L (4.30-5.90) m/uL Hgb 10.2 L (13.0-17.5) gm/dL Hct 32.4 L (39.0-53.0) % Neutrophils # 9.8 H (1.3-7.7) k/uL Lymphocytes # 0.6 L (1.0-4.8) k/uL Potassium 3.0 L* (3.5-5.1) mmol/L BUN 30 H (9-20) mg/dL Glucose 187 H (74-99) mg/dL POC Glucose (mg/dL) 161 H (75-99) mg/dL Hemoglobin A1c (4.2-6.1) % Troponin I (0.000-0.034) ng/mL Ur Specific [place] (1.001-1.035) 12/17/16 12/17/16 Range/Units 08:14 11:23 WBC (3.8-10.6) k/uL RBC (4.30-5.90) m/uL Hgb (13.0-17.5) gm/dL Hct (39.0-53.0) % Neutrophils # (1.3-7.7) k/uL Lymphocytes # (1.0-4.8) k/uL Potassium 3.3 L (3.5-5.1) mmol/L BUN (9-20) mg/dL Glucose (74-99) mg/dL POC Glucose (mg/dL) 333 H (75-99) mg/dL Hemoglobin A1c (4.2-6.1) % Troponin I (0.000-0.034) ng/mL Ur Specific [place] (1.001-1.035) Diabetes panel 12/16/16 12/17/16 12/17/16 Range/Units 19:13 03:40 08:14 Sodium 141 (137-145) mmol/L Potassium 3.0 L* 3.3 L (3.5-5.1) mmol/L Chloride 100 (98-107) mmol/L Carbon Dioxide 29 (22-30) mmol/L BUN 30 H (9-20) mg/dL Creatinine 0.80 (0.66-1.25) mg/dL Glucose 187 H (74-99) mg/dL Hemoglobin A1c 7.0 H (4.2-6.1) % Calcium 9.3 (8.4-10.2) mg/dL Calcium panel 12/17/16 12/17/16 Range/Units 03:40 08:14 Calcium 9.3 (8.4-10.2) mg/dL Phosphorus 2.8 3.5 (2.5-4.5) mg/dL Pituitary panel 12/17/16 12/17/16 Range/Units 03:40 08:14 Sodium 141 (137-145) mmol/L Potassium 3.0 L* 3.3 L (3.5-5.1) mmol/L Chloride 100 (98-107) mmol/L Carbon Dioxide 29 (22-30) mmol/L BUN 30 H (9-20) mg/dL Creatinine 0.80 (0.66-1.25) mg/dL Glucose 187 H (74-99) mg/dL Calcium 9.3 (8.4-10.2) mg/dL Adrenal panel 12/17/16 12/17/16 Range/Units 03:40 08:14 Sodium 141 (137-145) mmol/L Potassium 3.0 L* 3.3 L (3.5-5.1) mmol/L Chloride 100 (98-107) mmol/L Carbon Dioxide 29 (22-30) mmol/L BUN 30 H (9-20) mg/dL Creatinine 0.80 (0.66-1.25) mg/dL Glucose 187 H (74-99) mg/dL Calcium 9.3 (8.4-10.2) mg/dL - Imaging Additional studies: usg of gall bladder showed polyps. No signs of cholecystitis. Assessment and Plan (1) History of abdominal pain Status: Acute (2) Anorexia Status: Acute (3) Hypokalemia Status: Acute (4) Weakness Status: Acute Plan: Patient currently not complaining of any abdominal pain ultrasound is not suggestive cholecystitis at this point I will follow him clinically his pain returns with eating more food which hasn't at this point on that I will order a CT of the abdomen or a HIDA scan on clinical examination his abdomen is absolutely soft without any reported tenderness bloating or distention. Further recommendation depending on his clinical course.
[2016-12-17] MEDS: THIAMINE 100 MG TAB PO SCH (16:02)
[2016-12-17 16:35] LABS: Glucose,Whole Blood 274 mg/dL (75-99)
[2016-12-17] MEDS: LEVOFLOXACIN 500MG-D5W PMX 500 MG in DEXTROSE/WATER 1 100ML.BAG IVPB SCH (20:15)
[2016-12-17] MEDS: HEPARIN SODIUM,PORCINE 5,000 UNIT/ML 1 ML VIAL SQ SCH (20:15)
[2016-12-17 20:49] LABS: Glucose,Whole Blood 303 mg/dL (75-99)
[2016-12-17] MEDS: INSULIN GLARGINE 100 UNIT/ML 10 ML VIAL SQ SCH (21:45)
[2016-12-18 01:58] LABS: Glucose,Whole Blood 331 mg/dL (75-99)
[2016-12-18 05:44] LABS: Glucose,Whole Blood 252 mg/dL (75-99)
[2016-12-18 06:22] LABS: Basophils % (A) 0 %; CH 29.7; CHCM 31.7; Eosinophils % (A) 0 %; HCT 29.7 % (39.0-53.0); HDW 2.86; HGB 9.4 gm/dL (13.0-17.5); Hypochromasia Slight; Luc # (Auto) 0.08; Luc % (Auto) 1; Lymphocytes # (A) 0.6 k/uL (1.0-4.8); Lymphocytes % (A) 4 %; MCH 29.9 pg (25.0-35.0); MCHC 31.8 g/dL (31.0-37.0); MCV 94.1 fL (80.0-100.0); Mean Platelet Volume 8.3; Monocytes # (A) 0.4 k/uL (0-1.0); Monocytes % (A) 3 %; Neutrophils # (A) 13.3 k/uL (1.3-7.7); Neutrophils % (A) 92 %; RBC 3.16 m/uL (4.30-5.90); RDW 13.7 % (11.5-15.5); WBC 14.4 k/uL (3.8-10.6); WBC (Perox) 15.14
[2016-12-18 06:36] LABS: ALT 89 U/L (21-72); AST 44 U/L (17-59); Alkaline Phosphatase 128 U/L (38-126); Anion Gap 10 mmol/L; Blood Urea Nitrogen 30 mg/dL (9-20); Calcium 8.9 mg/dL (8.4-10.2); Carbon Dioxide 29 mmol/L (22-30); Chloride 102 mmol/L (98-107); Glucose 233 mg/dL (74-99); Magnesium 1.9 mg/dL (1.6-2.3); Non-African American GFR(MDRD) >60 (>60 ml/min/1.73 sqM); Potassium 3.9 mmol/L (3.5-5.1); Sodium 141 mmol/L (137-145); Total Bilirubin 0.3 mg/dL (0.2-1.3); Total Protein 5.4 g/dL (6.3-8.2)
[2016-12-18] MEDS: INSULIN LISPRO (humaLOG) 300 UNIT/3 ML VIAL SQ SCH ×3 (07:02→21:08)
[2016-12-18] MEDS ORDERED: INSULIN REGULAR 100 UNIT/ML VIAL SQ ONE (07:30)
[2016-12-18] MEDS: HEPARIN SODIUM,PORCINE 5,000 UNIT/ML 1 ML VIAL SQ SCH ×2 (08:06→21:07)
[2016-12-18] MEDS: PANTOPRAZOLE 40 MG/10 ML VIAL IVP SCH (08:06)
[2016-12-18] MEDS: IPRATROPIUM-ALBUTEROL 3 ML NEB INHALATION SCH ×4 (08:39→19:41)
[2016-12-18] MEDS: BUDESONIDE 0.5 MG/2 ML NEBU INHALATION SCH ×2 (08:39→19:41)
[2016-12-18] MEDS ORDERED: methylPREDNISolone SOD SUCCI 40 MG/ML 1 ML VIAL IV SCH (09:00)
[2016-12-18 11:44] LABS: Glucose,Whole Blood 212 mg/dL (75-99)
--- NOTE | 2016-12-18 12:58 | PN ---
DATE OF SERVICE: 12/18/16 CHIEF COMPLAINT: History of hyperpyrexia, headache, generalized weakness and hypokalemia. HISTORY OF PRESENT ILLNESS: This gentleman seems to be doing fairly well. He still seems confused and has difficulty describing his symptoms. He has not been febrile since he has been in. He was complaining of severe headaches but his CT is negative. Potassium is low and that is being corrected. His hemoglobin is down to 9.1. His white count is 14,400. CT of the abdomen suggests cholecystitis and Cholelithiasis. PHYSICAL EXAMINATION: Chest is quite clear. Cardiac exam is normal. Abdomen slightly protuberant and slightly tender over the epigastrium. Extremities normal. Neurological seems to be intact, but I am a little concerned about his confusion. IMPRESSION: 1. Leukocytosis. 2. Anemia. 3. Cholecystitis. 4. Unexplained headache. PLAN: 1. Surgical consult. 2. Add Flagyl to regimen. MTDD
[2016-12-18] MEDS: THIAMINE 100 MG TAB PO SCH ×2 (14:31→16:13)
[2016-12-18] MEDS: MULTIVITAMINS, THERA 1 EACH TAB PO SCH (14:31)
[2016-12-18] MEDS: 0.9% NACL WITH KCL 20 MEQ/L 1,000 ML IV SCH ×2 (14:31→22:31)
[2016-12-18 14:58] VITALS: BMI 28.5
[2016-12-18] MEDS: metroNIDAZOLE-NS PMX 500 MG in SALINE 1 100ML.BAG IVPB SCH ×2 (16:22→23:45)
--- NOTE | 2016-12-18 16:22 | P.PN ---
Subjective 66-year-old male being seen. Currently sitting up in bed receiving a respiratory treatment patient is adamant that he does not have any pain does not have any abdominal pain. Patient states his chief complaint he was having episodes of shortness of breath. Patient states he remains pain free without any abdominal pain. The white count this morning is 14.4 up from 10.7 AST and ALT mildly elevated AST 89, ALT 128. Electrolytes within normal limits patient is being seen by surgical service at the request of the attending for cholecystitis as suggested on an ultrasound of the abdomen. The gallbladder wall thickened. Objective - Vital Signs Vital signs: Vital Signs Temp 97.6 F 12/18/16 12:00 Pulse 76 12/18/16 15:25 Resp 18 12/18/16 12:00 BP 131/62 12/18/16 12:00 Pulse Ox 97 12/18/16 15:15 Intake & Output 12/17/16 12/18/16 12/18/16 18:59 06:59 18:59 Intake Total 1520 800 380 Output Total 400 200 Balance 1120 600 380 Weight 86.4 kg 90.4 kg 90.4 kg Intake: Intake, IV Titration 800 800 Amount 0.9% NaCl with KCl 20 Meq 800 /l 1,000 ml @ 100 mls/hr IV .Q10H [facility] Rx#: [id number] Potassium Chloride 10 meq 800 In Water For Injection 1 100ml.bag @ 100 mls/hr IVPB Q1H [facility] Rx#: [id number] Oral 720 380 Output: Urine 400 200 Other: Voiding Method Urinal # Voids 3 2 - Exam GENERAL APPEARANCE: The patient is alert, oriented, in no acute distress. VITAL SIGNS: Reviewed HEENT: Head is normocephalic and atraumatic. Pupils are equal and reactive. The nares are patent. Oropharynx is clear without lesions. NECK: Supple without lymphadenopathy. Traches midline. HEART: S1, S2. Regular rate and rhythm. Denying chest pain LUNGS: No crackles or wheezes are heard. Adequate air movement bilaterally ABDOMEN: Soft, nontender, nondistended with good bowel sounds. No peritoneal signs. No palpable organomegaly or masses. EXTREMITIES: Normal skin color and turgor. No cyanosis, rash, ulceration, clubbing or edema. Radial pedal pulses are 2/4 bilaterally. NEUROLOGICAL: No focal deficits. Strength and sensation are grossly intact. - Labs CBC & Chem 7: 12/18/16 05:48 12/18/16 05:48 Labs: Abnormal Lab Results - Last 24 Hours (Table) 12/17/16 12/17/16 12/18/16 Range/Units 16:30 20:46 01:55 WBC (3.8-10.6) k/uL RBC (4.30-5.90) m/uL Hgb (13.0-17.5) gm/dL Hct (39.0-53.0) % Neutrophils # (1.3-7.7) k/uL Lymphocytes # (1.0-4.8) k/uL BUN (9-20) mg/dL Glucose (74-99) mg/dL POC Glucose (mg/dL) 274 H 303 H 331 H (75-99) mg/dL ALT (21-72) U/L Alkaline Phosphatase (38-126) U/L Total Protein (6.3-8.2) g/dL Albumin (3.5-5.0) g/dL 12/18/16 12/18/16 12/18/16 Range/Units 05:41 05:48 05:48 WBC 14.4 H (3.8-10.6) k/uL RBC 3.16 L (4.30-5.90) m/uL Hgb 9.4 L (13.0-17.5) gm/dL Hct 29.7 L (39.0-53.0) % Neutrophils # 13.3 H (1.3-7.7) k/uL Lymphocytes # 0.6 L (1.0-4.8) k/uL BUN 30 H (9-20) mg/dL Glucose 233 H (74-99) mg/dL POC Glucose (mg/dL) 252 H (75-99) mg/dL ALT 89 H (21-72) U/L Alkaline Phosphatase 128 H (38-126) U/L Total Protein 5.4 L (6.3-8.2) g/dL Albumin 2.8 L (3.5-5.0) g/dL 12/18/16 Range/Units 11:40 WBC (3.8-10.6) k/uL RBC (4.30-5.90) m/uL Hgb (13.0-17.5) gm/dL Hct (39.0-53.0) % Neutrophils # (1.3-7.7) k/uL Lymphocytes # (1.0-4.8) k/uL BUN (9-20) mg/dL Glucose (74-99) mg/dL POC Glucose (mg/dL) 212 H (75-99) mg/dL ALT (21-72) U/L Alkaline Phosphatase (38-126) U/L Total Protein (6.3-8.2) g/dL Albumin (3.5-5.0) g/dL Microbiology - Last 24 Hours (Table) 12/16/16 16:11 Blood Culture - Preliminary Blood No Growth after 24 hours Assessment and Plan Plan: Impression Ultrasound of the abdomen gallbladder wall thickening correlate for cholecystitis History of abdominal pain Electrolyte hypokalemia Anorexia Generalized weakness History of alcohol consumption quit 2 weeks prior 05/04 a week of whiskey Plan Monitor electrolytes keep in a therapy range We'll continue to monitor if abdominal pain increases would order a HIDA scan Further recommendations pending clinical course DVT and GI prophylaxis The above impression and plan of care have been discussed and directed by signing physician. Lizabeth Ortiz nurse practitioner acting as scribe for signing physician.
[2016-12-18 16:46] LABS: Glucose,Whole Blood 280 mg/dL (75-99)
[2016-12-18] MEDS ORDERED: DILTIAZEM 125 MG in SODIUM CHLORIDE 0.9% 100 ML IV SCH ×2 (18:00→22:09)
[2016-12-18 20:53] LABS: Glucose,Whole Blood 318 mg/dL (75-99)
[2016-12-18] MEDS: LEVOFLOXACIN 500MG-D5W PMX 500 MG in DEXTROSE/WATER 1 100ML.BAG IVPB SCH (21:07)
[2016-12-18] MEDS: INSULIN GLARGINE 100 UNIT/ML 10 ML VIAL SQ SCH (21:08)
[2016-12-18] MEDS ORDERED: METOPROLOL TARTRATE 25 MG TAB PO STA (22:10)
[2016-12-18] MEDS: ACETAMINOPHEN TAB 500 MG TAB PO PRN (23:45)
[2016-12-19] MEDS: AMIODARONE 450 MG in DEXTROSE 5% IN WATER 250 ML IV SCH ×6 (00:27→15:52)
[2016-12-19] MEDS ORDERED: DEXTROSE 5% IN WATER 100 ML with AMIODARONE 150 MG IV ONE (03:41)
[2016-12-19 03:47] LABS: CH 28.4; CHCM 30.9; HCT 32.5 % (39.0-53.0); HDW 2.92; HGB 10.5 gm/dL (13.0-17.5); Hypochromasia Moderate; MCH 29.9 pg (25.0-35.0); MCHC 32.3 g/dL (31.0-37.0); MCV 92.5 fL (80.0-100.0); RBC 3.52 m/uL (4.30-5.90); RDW 13.2 % (11.5-15.5); WBC 14.3 k/uL (3.8-10.6); WBC (Perox) 16.16
[2016-12-19 04:00] LABS: ALT 100 U/L (21-72); AST 51 U/L (17-59); Alkaline Phosphatase 120 U/L (38-126); Amylase 71 U/L (30-110); Anion Gap 9 mmol/L; Blood Urea Nitrogen 28 mg/dL (9-20); Calcium 8.3 mg/dL (8.4-10.2); Carbon Dioxide 23 mmol/L (22-30); Chloride 106 mmol/L (98-107); Glucose 127 mg/dL (74-99); Magnesium 1.8 mg/dL (1.6-2.3); Non-African American GFR(MDRD) >60 (>60 ml/min/1.73 sqM); Potassium 4.2 mmol/L (3.5-5.1); Sodium 138 mmol/L (137-145); Total Bilirubin 0.5 mg/dL (0.2-1.3); Total Protein 5.7 g/dL (6.3-8.2)
[2016-12-19 04:35] LABS: Add Differential Manual Differential
[2016-12-19 04:36] LABS: Manual Review Performed; Myelocytes % 1 %; Nucleated Red Blood Cells 0 /100 WBC (0-0); Total Cells Counted 200
[2016-12-19 06:32] LABS: Glucose,Whole Blood 151 mg/dL (75-99)
[2016-12-19] MEDS: INSULIN LISPRO (humaLOG) 300 UNIT/3 ML VIAL SQ SCH ×4 (06:34→21:38)
[2016-12-19] MEDS: 0.9% NACL WITH KCL 20 MEQ/L 1,000 ML IV SCH ×2 (06:36→20:30)
[2016-12-19] MEDS: BUDESONIDE 0.5 MG/2 ML NEBU INHALATION SCH ×2 (07:11→19:07)
[2016-12-19] MEDS: IPRATROPIUM-ALBUTEROL 3 ML NEB INHALATION SCH ×4 (07:11→19:07)
[2016-12-19] MEDS: metroNIDAZOLE-NS PMX 500 MG in SALINE 1 100ML.BAG IVPB SCH ×2 (09:06→15:52)
[2016-12-19] MEDS: HEPARIN SODIUM,PORCINE 5,000 UNIT/ML 1 ML VIAL SQ SCH (09:06)
[2016-12-19] MEDS: PANTOPRAZOLE 40 MG/10 ML VIAL IVP SCH (09:06)
[2016-12-19] MEDS ORDERED: HEPARIN SODIUM,PORCINE 5,000 UNIT/ML 1 ML VIAL IV ONE (10:48)
[2016-12-19] MEDS ORDERED: HEPARIN SODIUM,PORCINE 5,000 UNIT/ML 1 ML VIAL IV PRN (10:48)
--- NOTE | 2016-12-19 10:52 | P.CRDCN ---
<Teressa Lehman E - Last Filed: 12/19/16 10:22> History of Present Illness Consult date: 12/19/16 Requesting physician: Riley Ornelsa Consult reason: atrial flutter Chief complaint: Abdominal pain History of present illness: This is a 66-year-old gentleman with history of hypertension, hyperlipidemia, coronary artery disease with prior stent placement, prior nicotine dependence, regular EtOH use, who presents to the hospital with symptoms of abdominal pain that the patient states has been worsening over the past one week or so. More recently patient states that associated with the abdominal discomfort is also been short of breath, and becoming extremely weak. Patient apparently was instructed to come to the emergency room because of some abnormal lab findings. EKG on arrival here showed atrial flutter with a moderately rapid ventricular response. Repeat EKG continued to show atrial flutter, rapid ventricular response. Nonspecific ST-T wave changes. Intermittently it does appear that the patient has been in normal sinus rhythm with PACs and PVCs. Chest x-ray on admission reveals poor inspiration otherwise a negative exam. CTA of the chest negative for pulmonary embolism. CT of the brain reveals cerebral atrophy and chronic small vessel ischemia. 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 Abdominal ultrasound reveals what may be wall echo shadow complex within the gallbladder wall. No gallbladder wall thickening or Guadarrama's sign noted. Clinical correlation is recommended for possible cholecystitis. White blood cell count 14.3, hemoglobin 10.5, platelet count 423. D-dimer 1.25. Potassium on admission 2.5, 4.2 this morning. BUN 28 , creatinine 0.7. A niece in level on admission 1.5, 1.8 this morning. ALT 100 AST 51 alk phos 120. Troponins 0.042, 0.045, 0.037. Blood pressure on admission 105/60, heart rate in the 80s, patient went into atrial flutter and heart rate went up into the 130s, blood pressure 138/90. Cardiology consultation was requested because of arrhythmia. Patient was started on a Cardizem drip through the night last night, this was increased to 15 mg per hour with an additional 10 mg IV bolus. In spite of that patient continued to be in a rapid rate of 140s to 150s. IV Cardizem was discontinued and patient was initiated on IV amiodarone. At the time of my examination the heart rate continues to be in the 120 range. Patient was on Tenormin at home, he states he 's been on that for several years, that has not been resumed here. At the time of my examination this morning, patient continues to have mild abdominal discomfort, chest pain, no palpitations, states he feels short of breath while lying flat but not when he is sitting up and active. Past Medical History Past Medical History: Chest Pain / Angina, Hyperlipidemia, Hypertension, Myocardial Infarction (MS) Last Myocardial Infarction Date:: 1994 History of Any Multi-Drug Resistant Organisms: None Reported Past Surgical History: Heart Catheterization With Stent, Joint Replacement, Orthopedic Surgery Past Anesthesia/Blood Transfusion Reactions: No Reported Reaction Date of Last Stent Placement:: unknown Past Psychological History: No Psychological Hx Reported Smoking Status: Former smoker Past Alcohol Use History: Occasional Additional Past Alcohol Use History / Comment(s): patient states he drank a fifth and a half of whiskey per week, stopped completely 2 weeks ago. Past Drug Use History: None Reported - Past Family History Mother Family Medical History: Cancer, Pulmonary Embolus Additional Family Medical History / Comment(s): blood cancer, unsure of type, 1978 Father Family Medical History: Cancer, COPD Additional Family Medical History / Comment(s): Lung Cancer, 1997 Brother(s) Family Medical History: Hypertension, Myocardial Infarction (MS) Additional Family Medical History / Comment(s): #1 stroke, 1988. #2 MS , 2013 Sister(s) Family Medical History: Diabetes Mellitus, Hypertension Medications and Allergies Home Medications Medication Instructions Recorded Confirmed Type Atenolol [Tenormin] 50 mg PO DAILY 12/16/16 12/16/16 History Ciprofloxacin HCl [Cipro] 500 mg PO Q12HR 12/16/16 12/16/16 History Allergies Allergy/AdvReac Type Severity Reaction Status Date / Time Iodinated Contrast- Oral and Allergy Nausea & Verified 12/16/16 13:02 IV Dye Vomiting onion Allergy Anaphylaxis Verified 12/16/16 19:38 shellfish derived [Shellfish] Allergy Anaphylaxis Verified 12/16/16 19:37 Physical Exam Vitals: Vital Signs Temp Pulse Pulse Resp BP Pulse Ox 12/19/16 08:00 97.6 F 134 H 16 134/84 94 L 12/19/16 07:21 93 16 12/19/16 07:11 93 14 93 L 12/19/16 04:00 96.5 F L 137 H 18 132/90 98 12/19/16 00:00 96.9 F L 147 H 18 109/81 97 12/18/16 20:01 100 12/18/16 19:50 97.8 F 134 H 18 166/83 98 12/18/16 19:45 100 12/18/16 15:25 76 12/18/16 15:15 76 97 12/18/16 13:06 64 12/18/16 12:46 68 12/18/16 12:00 97.6 F 62 18 131/62 96 Intake and Output 12/18/16 12/19/16 12/19/16 22:59 06:59 14:59 Intake Total 980 403.869 Output Total 200 300 Balance 780 103.869 Intake: Intake, IV Titration 800 403.869 Amount 0.9% NaCl with KCl 20 Meq 800 /l 1,000 ml @ 100 mls/hr IV .Q10H [facility] Rx#: [id number] Amiodarone 450 mg In 203.869 Dextrose 5% in Water 250 ml @ 1 MG/MIN 33.33 mls/ hr IV .Q7H31M [facility] Rx#: [id number] Levofloxacin 500Mg-D5w 100 Pmx 500 mg In Dextrose/ Water 1 100ml.bag @ 100 mls/hr IVPB Q24H [facility] Rx#: [id number] metroNIDAZOLE-NS PMX 500 100 mg In Saline 1 100ml.bag @ 100 mls/hr IVPB Q8HR [facility] Rx#:[id number] Oral 180 Output: Urine 200 300 Other: Voiding Method Urinal Urinal # Voids 2 Weight 94.6 kg PHYSICAL EXAMINATION: HEENT: Head is atraumatic, normocephalic. Pupils equal, round. Neck is supple. There is elevated jugular venous pressure. HEART EXAMINATION: Heart S1 and S2 irregularly irregular CHEST EXAMINATION: Lungs reveal decreased air exchange with diminished air entry bilaterally. ABDOMEN: Soft, mild generalized tenderness. Bowel sounds are heard. No organomegaly noted. EXTREMITIES: 2+ peripheral pulses with evidence of peripheral edema and no calf tenderness noted. NEUROLOGIC patient is awake, alert and oriented -3. . Results 12/19/16 03:28 12/19/16 03:28 Cardiac Enzymes 12/19/16 Range/Units 03:28 AST 51 (17-59) U/L CBC 12/19/16 Range/Units 03:28 WBC 14.3 H (3.8-10.6) k/uL RBC 3.52 L (4.30-5.90) m/uL Hgb 10.5 L (13.0-17.5) gm/dL Hct 32.5 L (39.0-53.0) % Plt Count 423 (150-450) k/uL Comprehensive Metabolic Panel 12/19/16 Range/Units 03:28 Sodium 138 (137-145) mmol/L Potassium 4.2 (3.5-5.1) mmol/L Chloride 106 (98-107) mmol/L Carbon Dioxide 23 (22-30) mmol/L BUN 28 H (9-20) mg/dL Creatinine 0.70 (0.66-1.25) mg/dL Glucose 127 H (74-99) mg/dL Calcium 8.3 L (8.4-10.2) mg/dL AST 51 (17-59) U/L ALT 100 H (21-72) U/L Alkaline Phosphatase 120 (38-126) U/L Total Protein 5.7 L (6.3-8.2) g/dL Albumin 2.9 L (3.5-5.0) g/dL Current Medications Generic Name Dose Route Start Last Admin Trade Name Freq PRN Reason Stop Dose Admin Acetaminophen 1,000 mg 12/16/16 19:18 12/18/16 23:45 Tylenol Tab PO 1,000 mg Q8HR PRN Administration Fever and/ or Mild Pain Albuterol/Ipratropium 3 ml 12/16/16 19:14 Duoneb 0.5 Mg-3 Mg/3 Ml Soln INHALATION RT-QID PRN Shortness Of Breath Or Wheezing Albuterol/Ipratropium 3 ml 12/16/16 20:00 12/19/16 07:11 Duoneb 0.5 Mg-3 Mg/3 Ml Soln INHALATION 3 ml RT-QID [facility] Administration Budesonide 0.5 mg 12/16/16 20:00 12/19/16 07:11 Pulmicort INHALATION 0.5 mg RT-BID [facility] Administration Heparin Sodium (Porcine) 5,000 unit 12/17/16 21:00 12/19/16 09:06 Heparin SQ 5,000 unit Q12HR [facility] Administration Potassium Chloride/Sodium Chloride 1,000 mls @ 100 mls/hr 12/16/16 20:00 06:36 Ns-Kcl 20 Meq/L Iv Solution IV 100 mls/hr .Q10H [facility] Administration Metronidazole 500 mg/ IV 100 mls @ 100 mls/hr 12/18/16 16:00 12/19/16 09:06 Solution IVPB 12/20/16 02:00 100 mls/hr Q8HR [facility] Administration Amiodarone HCl 450 mg/ 250 mls @ 33.33 mls/hr 12/19/16 00:10 12/19/16 06:34 Dextrose/Water IV 12/20/16 00:10 0.5 mg/min .Q7H31M [facility] 16.66 mls/hr Protocol Titration 1 MG/MIN Insulin Glargine 5 unit 12/16/16 21:45 12/18/16 21:08 Lantus SQ 5 unit HS [facility] Administration Insulin Human Lispro 0 unit 12/18/16 21:00 12/19/16 06:34 Humalog SQ 1 unit ACHS [facility] Administration Protocol Levofloxacin 500 mg 12/19/16 21:00 Levaquin PO HS [facility] Lorazepam 1 mg 12/17/16 11:34 12/17/16 12:06 Ativan IV 1 mg Q2HR PRN Administration CIWA 8 or 9 Lorazepam 1 mg 12/17/16 11:34 Ativan IV Q1HR PRN CIWA 10 to 15 Lorazepam 2 mg 12/17/16 11:34 Ativan IV 01/16/17 11:35 Q10M PRN CIWA 16 or higher Metronidazole 500 mg 12/20/16 09:00 Flagyl PO TID [facility] Miscellaneous Information 1 each 12/17/16 10:47 Potassium Per Protocol MISCELLANE DAILY PRN Per Protocol Protocol Multivitamins 1 each 12/17/16 12:00 12/18/16 14:31 Theragran PO 1 each DAILY@1200 [facility] Administration Pantoprazole Sodium 40 mg 12/20/16 07:30 Protonix PO AC-BRKFST [facility] Thiamine HCl 100 mg 12/17/16 17:00 12/18/16 16:13 Vitamin B-1 PO 100 mg BID@1200,1700 [facility] Administration Intake and Output 12/18/16 12/19/16 12/19/16 22:59 06:59 14:59 Intake Total 980 403.869 Output Total 200 300 Balance 780 103.869 Intake: Intake, IV Titration 800 403.869 Amount 0.9% NaCl with KCl 20 Meq 800 /l 1,000 ml @ 100 mls/hr IV .Q10H [facility] Rx#: [id number] Amiodarone 450 mg In 203.869 Dextrose 5% in Water 250 ml @ 1 MG/MIN 33.33 mls/ hr IV .Q7H31M [facility] Rx#: [id number] Levofloxacin 500Mg-D5w 100 Pmx 500 mg In Dextrose/ Water 1 100ml.bag @ 100 mls/hr IVPB Q24H [facility] Rx#: [id number] metroNIDAZOLE-NS PMX 500 100 mg In Saline 1 100ml.bag @ 100 mls/hr IVPB Q8HR [facility] Rx#:[id number] Oral 180 Output: Urine 200 300 Other: Voiding Method Urinal Urinal # Voids 2 Weight 94.6 kg 12/19/16 03:28 12/19/16 03:28 EKG Interpretations (text) EKG shows atrial flutter with a rapid ventricular response Assessment and Plan Plan: Assessment and plan #1 symptoms of abdominal discomfort, ultrasound of the abdomen did not reveal any significant findings. GI service on the case. Possible cholecystitis. #2 atrial flutter with rapid ventricular response, paroxysmal, new onset. #3 hypertension #4 prior nicotine dependence #5 regular EtOH use #6 shortness of breath, could be secondary to atrial flutter with rapid ventricular response. Chest x-ray did not reveal any acute findings. We will obtain a BNP level. #7 abnormal troponins, not suggestive of acute coronary syndrome, could be secondary to oxygen supply and demand mismatch #8 coronary artery disease with prior stent placement #9 history of hyperlipidemia, untreated Plan Obtain an echocardiogram with Doppler study. Check free T4 and TSH level. Continue Amiodarone. Resume the patient's beta soto. Check a BNP level and fasting lipid profile. Initiate IV heparin. Further recommendations to follow. DNP note has been reviewed, I agree with a documented findings and plan of care. Patient was seen and examined. <Franco May - Last Filed: 08/22/17 13:15> Physical Exam Vitals: Vital Signs Temp Pulse Pulse Resp BP Pulse Ox 12/19/16 12:00 97.6 F 73 16 164/87 97 12/19/16 11:32 92 16 12/19/16 11:21 92 12/19/16 08:00 97.6 F 134 H 16 134/84 94 L 12/19/16 07:21 93 16 12/19/16 07:11 93 14 93 L 12/19/16 04:00 96.5 F L 137 H 18 132/90 98 12/19/16 00:00 96.9 F L 147 H 18 109/81 97 12/18/16 20:01 100 12/18/16 19:50 97.8 F 134 H 18 166/83 98 12/18/16 19:45 100 12/18/16 15:25 76 12/18/16 15:15 76 97 Intake and Output 12/18/16 12/19/16 12/19/16 22:59 06:59 14:59 Intake Total 980 403.869 46.131 Output Total 200 300 Balance 780 103.869 46.131 Intake: Intake, IV Titration 800 403.869 46.131 Amount 0.9% NaCl with KCl 20 Meq 800 /l 1,000 ml @ 100 mls/hr IV .Q10H [facility] Rx#: [id number] Amiodarone 450 mg In 203.869 46.131 Dextrose 5% in Water 250 ml @ 1 MG/MIN 33.33 mls/ hr IV .Q7H31M [facility] Rx#: [id number] Levofloxacin 500Mg-D5w 100 Pmx 500 mg In Dextrose/ Water 1 100ml.bag @ 100 mls/hr IVPB Q24H [facility] Rx#: [id number] metroNIDAZOLE-NS PMX 500 100 mg In Saline 1 100ml.bag @ 100 mls/hr IVPB Q8HR [facility] Rx#:[id number] Oral 180 Output: Urine 200 300 Other: Voiding Method Urinal Urinal # Voids 2 Weight 94.6 kg Results 12/19/16 11:01 12/19/16 03:28 Cardiac Enzymes 12/19/16 Range/Units 03:28 AST 51 (17-59) U/L Coagulation 12/19/16 Range/Units 11:01 PT 11.5 (9.0-12.0) sec APTT 25.2 (22.0-30.0) sec CBC 12/19/16 12/19/16 Range/Units 03:28 11:01 WBC 14.3 H 14.0 H (3.8-10.6) k/uL RBC 3.52 L 3.73 L (4.30-5.90) m/uL Hgb 10.5 L 11.0 L (13.0-17.5) gm/dL Hct 32.5 L 34.3 L (39.0-53.0) % Plt Count 423 412 (150-450) k/uL Comprehensive Metabolic Panel 12/19/16 Range/Units 03:28 Sodium 138 (137-145) mmol/L Potassium 4.2 (3.5-5.1) mmol/L Chloride 106 (98-107) mmol/L Carbon Dioxide 23 (22-30) mmol/L BUN 28 H (9-20) mg/dL Creatinine 0.70 (0.66-1.25) mg/dL Glucose 127 H (74-99) mg/dL Calcium 8.3 L (8.4-10.2) mg/dL AST 51 (17-59) U/L ALT 100 H (21-72) U/L Alkaline Phosphatase 120 (38-126) U/L Total Protein 5.7 L (6.3-8.2) g/dL Albumin 2.9 L (3.5-5.0) g/dL Current Medications Generic Name Dose Route Start Last Admin Trade Name Freq PRN Reason Stop Dose Admin Acetaminophen 1,000 mg 12/16/16 19:18 12/18/16 23:45 Tylenol Tab PO 1,000 mg Q8HR PRN Administration Fever and/ or Mild Pain Albuterol/Ipratropium 3 ml 12/16/16 19:14 Duoneb 0.5 Mg-3 Mg/3 Ml Soln INHALATION RT-QID PRN Shortness Of Breath Or Wheezing Albuterol/Ipratropium 3 ml 12/16/16 20:00 12/19/16 11:21 Duoneb 0.5 Mg-3 Mg/3 Ml Soln INHALATION 3 ml RT-QID [facility] Administration Atenolol 50 mg 12/19/16 11:00 12/19/16 11:33 Tenormin PO 50 mg DAILY [facility] Administration Budesonide 0.5 mg 12/16/16 20:00 12/19/16 07:11 Pulmicort INHALATION 0.5 mg RT-BID [facility] Administration Heparin Sodium (Porcine) 0 unit 12/19/16 10:48 Heparin IV PER PROTOCOL PRN Low PTT Protocol Potassium Chloride/Sodium Chloride 1,000 mls @ 100 mls/hr 12/16/16 20:00 06:36 Ns-Kcl 20 Meq/L Iv Solution IV 100 mls/hr .Q10H [facility] Administration Metronidazole 500 mg/ IV 100 mls @ 100 mls/hr 12/18/16 16:00 12/19/16 09:06 Solution IVPB 12/20/16 02:00 100 mls/hr Q8HR [facility] Administration Amiodarone HCl 450 mg/ 250 mls @ 33.33 mls/hr 12/19/16 00:10 12/19/16 12:22 Dextrose/Water IV 12/20/16 00:10 0.5 mg/min .Q7H31M [facility] 16.66 mls/hr Protocol Administration 1 MG/MIN Heparin Sodium/Dextrose 25,000 500 mls @ 19.99 mls/hr 12/19/16 11:00 11:33 unit/ IV Solution IV 10.57 units/kg/hr .Q24H [facility] 19.99 mls/hr Protocol Administration 10.57 UNITS/KG/HR Insulin Glargine 5 unit 12/16/16 21:45 12/18/16 21:08 Lantus SQ 5 unit HS [facility] Administration Insulin Human Lispro 0 unit 12/18/16 21:00 12/19/16 12:23 Humalog SQ 2 unit ACHS [facility] Administration Protocol Levofloxacin 500 mg 12/19/16 21:00 Levaquin PO HS [facility] Lorazepam 1 mg 12/17/16 11:34 12/17/16 12:06 Ativan IV 1 mg Q2HR PRN Administration CIWA 8 or 9 Lorazepam 1 mg 12/17/16 11:34 Ativan IV Q1HR PRN CIWA 10 to 15 Lorazepam 2 mg 12/17/16 11:34 Ativan IV 01/16/17 11:35 Q10M PRN CIWA 16 or higher Metronidazole 500 mg 12/20/16 09:00 Flagyl PO TID [facility] Miscellaneous Information 1 each 12/17/16 10:47 Potassium Per Protocol MISCELLANE DAILY PRN Per Protocol Protocol Multivitamins 1 each 12/17/16 12:00 12/19/16 11:33 Theragran PO 1 each DAILY@1200 [facility] Administration Pantoprazole Sodium 40 mg 12/20/16 07:30 Protonix PO AC-BRKFST [facility] Thiamine HCl 100 mg 12/17/16 17:00 12/19/16 11:33 Vitamin B-1 PO 100 mg BID@1200,1700 [facility] Administration Intake and Output 12/18/16 12/19/16 12/19/16 22:59 06:59 14:59 Intake Total 980 403.869 46.131 Output Total 200 300 Balance 780 103.869 46.131 Intake: Intake, IV Titration 800 403.869 46.131 Amount 0.9% NaCl with KCl 20 Meq 800 /l 1,000 ml @ 100 mls/hr IV .Q10H [facility] Rx#: [id number] Amiodarone 450 mg In 203.869 46.131 Dextrose 5% in Water 250 ml @ 1 MG/MIN 33.33 mls/ hr IV .Q7H31M [facility] Rx#: [id number] Levofloxacin 500Mg-D5w 100 Pmx 500 mg In Dextrose/ Water 1 100ml.bag @ 100 mls/hr IVPB Q24H [facility] Rx#: [id number] metroNIDAZOLE-NS PMX 500 100 mg In Saline 1 100ml.bag @ 100 mls/hr IVPB Q8HR [facility] Rx#:[id number] Oral 180 Output: Urine 200 300 Other: Voiding Method Urinal Urinal # Voids 2 Weight 94.6 kg 12/19/16 11:01 12/19/16 03:28
[2016-12-19 11:18] LABS: Basophils % (A) 0 %; CH 28.7; CHCM 31.4; Eosinophils # (A) 0.1 k/uL (0-0.7); Eosinophils % (A) 1 %; HCT 34.3 % (39.0-53.0); HDW 2.92; Hypochromasia Slight; Luc # (Auto) 0.11; Luc % (Auto) 1; Lymphocytes # (A) 1.3 k/uL (1.0-4.8); Lymphocytes % (A) 10 %; MCH 29.4 pg (25.0-35.0); MCV 91.9 fL (80.0-100.0); Monocytes # (A) 0.5 k/uL (0-1.0); Monocytes % (A) 3 %; Neutrophils % (A) 86 %; RBC 3.73 m/uL (4.30-5.90); RDW 13.3 % (11.5-15.5); WBC (Perox) 15.07
[2016-12-19 11:25] LABS: INR 1.2 (<1.2); Partial Thromboplastin Time 25.2 sec (22.0-30.0); Prothrombin Time 11.5 sec (9.0-12.0)
[2016-12-19] MEDS: HEPARIN SODIUM,PORCINE/D5W PMX 25,000 UNIT in DEXTROSE/WATER 1 500ML.BAG IV SCH (11:33)
[2016-12-19] MEDS: ATENOLOL 50 MG TAB PO SCH (11:33)
[2016-12-19] MEDS: THIAMINE 100 MG TAB PO SCH ×2 (11:33→17:02)
[2016-12-19] MEDS: MULTIVITAMINS, THERA 1 EACH TAB PO SCH (11:33)
[2016-12-19 11:49] LABS: Glucose,Whole Blood 167 mg/dL (75-99)
--- NOTE | 2016-12-19 13:22 | P.PN ---
Progress Note - Text 66-year-old being seen at the request of the attending for a surgical eval patient was seen this morning resting in bed patient is adamant that he has not been having any abdominal pain at this time we'll sign off on this patient contact surgical service if any new issues arise The above impression and plan of care have been discussed and directed by signing physician. Lizabeth Ortiz nurse practitioner acting as scribe for signing physician.
[2016-12-19 16:07] LABS: Glucose,Whole Blood 182 mg/dL (75-99)
[2016-12-19 17:08] LABS: Glucose,Whole Blood 206 mg/dL (75-99)
--- NOTE | 2016-12-19 20:16 | ECHOF ---
Referral Reason:aflutter MEASUREMENTS -------- HEIGHT: 152.4 cm WEIGHT: 94.3 kg BP: 120/ IVSd: 1.1 cm (0.6 - 1.1) LVIDd: 6.6 cm (3.9 - 5.3) LVPWd: 1.2 cm (0.6 - 1.1) IVSs: 1.4 cm LVIDs: 4.8 cm LVPWs: 1.4 cm Ao Diam: 3.7 cm (2.0 - 3.7) AV Cusp: 1.5 cm (1.5 - 2.6) LA Diam: 5.0 cm (2.7 - 3.8) MV EXCURSION: 22.646 mm (> 18.000) MV EF SLOPE: 74 mm/s (70 - 150) EPSS: 0.5 cm RAP: 5.00 mmHg RVSP: 36.55 mmHg FINDINGS -------- Undetermined rhythm. This was a techncally difficult study with suboptimal views, , Definity utilized for enhancement of images. There is mild concentric left ventricular hypertrophy. Overall left ventricular systolic function is severely impaired with, an EF between 20 - 25 %. The right ventricle is normal in size. The left atrial size is normal. The right atrial size is normal. 1.5MG OF DEFINITY UTLIZED: 2 OR MORE WALL SEGMENTS NOT VISUALIZED. There is mild aortic valve sclerosis. There is no evidence of aortic regurgitation. Mild mitral annular calcification present. Mild mitral regurgitation is present. Mild tricuspid regurgitation present. There is mild pulmonary hypertension. The right ventricular systolic pressure, as measured by Doppler, is 36.55mmHg. There is no pulmonic regurgitation present. There is no pericardial effusion. CONCLUSIONS -------- 1. This was a techncally difficult study with suboptimal views, , Definity utilized for enhancement of images. 2. The right ventricular systolic pressure, as measured by Doppler, is 36.55mmHg. 3. There is mild concentric left ventricular hypertrophy. 4. Overall left ventricular systolic function is severely impaired with, an EF between 20 - 25 %. 5. 1.5MG OF DEFINITY UTLIZED: 2 OR MORE WALL SEGMENTS NOT VISUALIZED. 6. There is mild aortic valve sclerosis. 7. Mild mitral annular calcification present. 8. Mild mitral regurgitation is present. 9. Mild tricuspid regurgitation present. 10. There is mild pulmonary hypertension. [employer]ER: Mariel May RDCS
[2016-12-19] MEDS: LEVOFLOXACIN 500 MG TAB PO SCH (20:27)
[2016-12-19] MEDS: ACETAMINOPHEN TAB 500 MG TAB PO PRN (20:27)
[2016-12-19 20:55] LABS: Glucose,Whole Blood 156 mg/dL (75-99)
[2016-12-19] MEDS: INSULIN GLARGINE 100 UNIT/ML 10 ML VIAL SQ SCH (21:38)
[2016-12-20] MEDS: AMIODARONE 450 MG in DEXTROSE 5% IN WATER 250 ML IV SCH ×2 (00:01)
[2016-12-20] MEDS: metroNIDAZOLE-NS PMX 500 MG in SALINE 1 100ML.BAG IVPB SCH (00:06)
[2016-12-20] MEDS: 0.9% NACL WITH KCL 20 MEQ/L 1,000 ML IV SCH ×2 (04:42→15:51)
[2016-12-20 05:44] LABS: Glucose,Whole Blood 141 mg/dL (75-99)
[2016-12-20] MEDS: INSULIN LISPRO (humaLOG) 300 UNIT/3 ML VIAL SQ SCH ×4 (06:17→21:08)
[2016-12-20] MEDS: PANTOPRAZOLE 40 MG TABLET PO SCH (06:17)
[2016-12-20 06:38] LABS: Basophils % (A) 0 %; CH 28.5; CHCM 30.7; Eosinophils % (A) 0 %; HCT 32.3 % (39.0-53.0); HDW 2.91; HGB 10.1 gm/dL (13.0-17.5); Hypochromasia Moderate; Luc # (Auto) 0.12; Luc % (Auto) 1; Lymphocytes # (A) 1.3 k/uL (1.0-4.8); Lymphocytes % (A) 11 %; MCH 29.2 pg (25.0-35.0); MCHC 31.3 g/dL (31.0-37.0); MCV 93.4 fL (80.0-100.0); Mean Platelet Volume 7.1; Monocytes # (A) 0.4 k/uL (0-1.0); Monocytes % (A) 4 %; Neutrophils # (A) 9.2 k/uL (1.3-7.7); Neutrophils % (A) 83 %; RBC 3.46 m/uL (4.30-5.90); RDW 13.4 % (11.5-15.5); WBC 11.1 k/uL (3.8-10.6); WBC (Perox) 11.65
[2016-12-20 07:11] LABS: ALT 79 U/L (21-72); AST 25 U/L (17-59); Alkaline Phosphatase 108 U/L (38-126); Anion Gap 8 mmol/L; Blood Urea Nitrogen 22 mg/dL (9-20); Calcium 8.1 mg/dL (8.4-10.2); Carbon Dioxide 20 mmol/L (22-30); Chloride 110 mmol/L (98-107); Glucose 135 mg/dL (74-99); Magnesium 1.7 mg/dL (1.6-2.3); Non-African American GFR(MDRD) >60 (>60 ml/min/1.73 sqM); Potassium 4.4 mmol/L (3.5-5.1); Sodium 138 mmol/L (137-145); Total Bilirubin 0.5 mg/dL (0.2-1.3)
[2016-12-20] MEDS: ACETAMINOPHEN TAB 500 MG TAB PO PRN ×2 (07:28→17:06)
[2016-12-20] MEDS: MULTIVITAMINS, THERA 1 EACH TAB PO SCH (07:56)
[2016-12-20] MEDS: THIAMINE 100 MG TAB PO SCH ×2 (07:57→17:05)
[2016-12-20] MEDS: metroNIDAZOLE 500 MG TAB PO SCH ×3 (07:57→21:08)
[2016-12-20] MEDS: ATENOLOL 50 MG TAB PO SCH (07:57)
[2016-12-20] MEDS: HEPARIN SODIUM,PORCINE/D5W PMX 25,000 UNIT in DEXTROSE/WATER 1 500ML.BAG IV SCH ×2 (07:57→23:01)
[2016-12-20] MEDS: BUDESONIDE 0.5 MG/2 ML NEBU INHALATION SCH ×2 (08:09→20:15)
[2016-12-20] MEDS: IPRATROPIUM-ALBUTEROL 3 ML NEB INHALATION SCH ×4 (08:09→20:15)
[2016-12-20] MEDS ORDERED: Magnesium Replacement Protocol 1 EACH MISC MISCELLANE PRN (10:55)
[2016-12-20 11:34] LABS: Glucose,Whole Blood 132 mg/dL (75-99)
[2016-12-20] MEDS: MAGNESIUM SULFATE-D5W PMX 1 GM in DEXTROSE/WATER 1 100ML.BAG IVPB SCH ×2 (12:35→14:44)
--- NOTE | 2016-12-20 14:54 | P.PN ---
Subjective Chart reviewed Labs are reviewed Echo reviewed Patient drinks alcohol, substantial amounts Thinks he does not have a cardiac issue Atrial fibrillation noted with RVR now well controlled on atenolol 50 mrem by mouth daily, availability of atenolol is an issue at this time as an outpatient Cardiomyopathy noted Magnesium Normal potassium Suggest Medical management with Toprol-XL 50 mrem by mouth daily in the morning, 12.5 mg of losartan in the evening, 25 mg of Aldactone in the morning, anticoagulate with one of the new agents preferably since he does drink alcohol on a regular basis and Coumadin may be problematic. High JOSH VASC score, anticoagulation indicated, must stop alcohol consumption Further management per PCP Objective - Vital Signs Vital signs: Vital Signs Temp 97.1 F L 12/20/16 07:50 Pulse 75 12/20/16 13:21 Resp 17 12/20/16 08:00 BP 128/70 12/20/16 07:50 Pulse Ox 98 12/20/16 08:10 Intake & Output 12/19/16 12/20/16 12/20/16 18:59 06:59 18:59 Intake Total 304.441 165.251 556.385 Output Total 400 750 100 Balance -95.559 -584.749 456.385 Weight 94.4 kg Intake: Intake, IV Titration 104.441 165.251 316.385 Amount Amiodarone 450 mg In 104.441 Dextrose 5% in Water 250 ml @ 1 MG/MIN 33.33 mls/ hr IV .Q7H31M [facility] Rx#: [id number] Heparin Sodium,Porcine/ 165.251 316.385 D5w Pmx 25,000 unit In Dextrose/Water 1 500ml. bag @ 10.57 UNITS/KG/HR 19.99 mls/hr IV .Q24H [facility] Rx#:[id number] Oral 200 240 Output: Urine 400 750 100 Other: Voiding Method Urinal Urinal # Voids 2 1 - Labs CBC & Chem 7: 12/20/16 05:58 12/20/16 05:58 Labs: Abnormal Lab Results - Last 24 Hours (Table) 12/19/16 12/19/16 12/19/16 Range/Units 15:55 16:44 18:40 WBC (3.8-10.6) k/uL RBC (4.30-5.90) m/uL Hgb (13.0-17.5) gm/dL Hct (39.0-53.0) % Neutrophils # (1.3-7.7) k/uL APTT 32.1 H (22.0-30.0) sec Chloride (98-107) mmol/L Carbon Dioxide (22-30) mmol/L BUN (9-20) mg/dL Glucose (74-99) mg/dL POC Glucose (mg/dL) 182 H 206 H (75-99) mg/dL Calcium (8.4-10.2) mg/dL ALT (21-72) U/L Total Protein (6.3-8.2) g/dL Albumin (3.5-5.0) g/dL 12/19/16 12/20/16 12/20/16 Range/Units 20:53 01:12 05:40 WBC (3.8-10.6) k/uL RBC (4.30-5.90) m/uL Hgb (13.0-17.5) gm/dL Hct (39.0-53.0) % Neutrophils # (1.3-7.7) k/uL APTT 48.3 H (22.0-30.0) sec Chloride (98-107) mmol/L Carbon Dioxide (22-30) mmol/L BUN (9-20) mg/dL Glucose (74-99) mg/dL POC Glucose (mg/dL) 156 H 141 H (75-99) mg/dL Calcium (8.4-10.2) mg/dL ALT (21-72) U/L Total Protein (6.3-8.2) g/dL Albumin (3.5-5.0) g/dL 12/20/16 12/20/16 12/20/16 Range/Units 05:58 05:58 05:58 WBC 11.1 H (3.8-10.6) k/uL RBC 3.46 L (4.30-5.90) m/uL Hgb 10.1 L (13.0-17.5) gm/dL Hct 32.3 L (39.0-53.0) % Neutrophils # 9.2 H (1.3-7.7) k/uL APTT 35.9 H (22.0-30.0) sec Chloride 110 H (98-107) mmol/L Carbon Dioxide 20 L (22-30) mmol/L BUN 22 H (9-20) mg/dL Glucose 135 H (74-99) mg/dL POC Glucose (mg/dL) (75-99) mg/dL Calcium 8.1 L (8.4-10.2) mg/dL ALT 79 H (21-72) U/L Total Protein 5.0 L (6.3-8.2) g/dL Albumin 2.6 L (3.5-5.0) g/dL 12/20/16 12/20/16 Range/Units 11:30 13:15 WBC (3.8-10.6) k/uL RBC (4.30-5.90) m/uL Hgb (13.0-17.5) gm/dL Hct (39.0-53.0) % Neutrophils # (1.3-7.7) k/uL APTT 71.0 H (22.0-30.0) sec Chloride (98-107) mmol/L Carbon Dioxide (22-30) mmol/L BUN (9-20) mg/dL Glucose (74-99) mg/dL POC Glucose (mg/dL) 132 H (75-99) mg/dL Calcium (8.4-10.2) mg/dL ALT (21-72) U/L Total Protein (6.3-8.2) g/dL Albumin (3.5-5.0) g/dL Microbiology - Last 24 Hours (Table) 12/16/16 16:11 Blood Culture - Preliminary Blood No Growth after 72 hours
[2016-12-20 16:39] LABS: Glucose,Whole Blood 142 mg/dL (75-99)
--- NOTE | 2016-12-20 17:42 | PN ---
DATE OF SERVICE: 12/19/2016 CHIEF COMPLAINT: Weakness, unexplained fever. HISTORY OF PRESENT ILLNESS: During the night this gentleman went into atrial fibrillation. His heart rate went up to around 150 beats per minute. He was started on Cardizem, without significant change. He used to be seen by Cardiology. He has had no increased shortness of breath, chest pain, hemoptysis , etc. PHYSICAL EXAM: He does have bilateral wheezing and rhonchi. Cardiac exam demonstrates atrial fibrillation with a rate of around 150. The abdomen is soft and non-tender. He is not tender over the gallbladder bed area at all. IMPRESSION: 1. New-onset atrial fibrillation with rapid ventricular rate. 2. Unexplained fever. PLAN: 1. Cardiology consult. 2. Anticoagulation. 3. Rule out pulmonary embolism. MTDD
[2016-12-20 21:08] LABS: Glucose,Whole Blood 198 mg/dL (75-99)
[2016-12-20] MEDS: INSULIN GLARGINE 100 UNIT/ML 10 ML VIAL SQ SCH (21:08)
[2016-12-20] MEDS: LEVOFLOXACIN 500 MG TAB PO SCH (21:08)
[2016-12-21] MEDS: ACETAMINOPHEN TAB 500 MG TAB PO PRN ×2 (01:41→11:16)
[2016-12-21] MEDS: 0.9% NACL WITH KCL 20 MEQ/L 1,000 ML IV SCH ×2 (01:59→07:45)
[2016-12-21 05:46] LABS: Glucose,Whole Blood 128 mg/dL (75-99)
[2016-12-21 06:24] LABS: Basophils % (A) 0 %; CH 29.7; CHCM 31.8; Eosinophils # (A) 0.1 k/uL (0-0.7); Eosinophils % (A) 1 %; HCT 34.6 % (39.0-53.0); HDW 2.83; HGB 10.9 gm/dL (13.0-17.5); Hypochromasia Slight; Luc # (Auto) 0.07; Luc % (Auto) 1; Lymphocytes # (A) 1.1 k/uL (1.0-4.8); Lymphocytes % (A) 9 %; MCH 29.4 pg (25.0-35.0); MCHC 31.4 g/dL (31.0-37.0); MCV 93.8 fL (80.0-100.0); Mean Platelet Volume 7.9; Monocytes # (A) 0.3 k/uL (0-1.0); Monocytes % (A) 3 %; Neutrophils # (A) 9.8 k/uL (1.3-7.7); Neutrophils % (A) 87 %; RBC 3.69 m/uL (4.30-5.90); RDW 14.1 % (11.5-15.5); WBC 11.4 k/uL (3.8-10.6); WBC (Perox) 11.54
[2016-12-21] MEDS: INSULIN LISPRO (humaLOG) 300 UNIT/3 ML VIAL SQ SCH (06:24)
[2016-12-21] MEDS: PANTOPRAZOLE 40 MG TABLET PO SCH (06:25)
[2016-12-21 06:46] LABS: Chloride 107 mmol/L (98-107); Glucose 107 mg/dL (74-99); Potassium 4.1 mmol/L (3.5-5.1); Sodium 140 mmol/L (137-145); Total Protein 5.3 g/dL (6.3-8.2)
[2016-12-21 06:48] LABS: ALT 65 U/L (21-72); AST 20 U/L (17-59); Alkaline Phosphatase 105 U/L (38-126); Anion Gap 7 mmol/L; Blood Urea Nitrogen 18 mg/dL (9-20); Calcium 8.1 mg/dL (8.4-10.2); Carbon Dioxide 26 mmol/L (22-30); Magnesium 1.9 mg/dL (1.6-2.3); Non-African American GFR(MDRD) >60 (>60 ml/min/1.73 sqM); Total Bilirubin 0.5 mg/dL (0.2-1.3)
[2016-12-21 07:43] VITALS: BP 150/65; RESP 18; TEMP 97.2
[2016-12-21] MEDS: THIAMINE 100 MG TAB PO SCH (07:44)
[2016-12-21] MEDS: MULTIVITAMINS, THERA 1 EACH TAB PO SCH (07:44)
[2016-12-21] MEDS: metroNIDAZOLE 500 MG TAB PO SCH (07:44)
[2016-12-21] MEDS: BUDESONIDE 0.5 MG/2 ML NEBU INHALATION SCH (08:42)
[2016-12-21] MEDS: IPRATROPIUM-ALBUTEROL 3 ML NEB INHALATION SCH (08:42)
[2016-12-21] MEDS ORDERED: METOPROLOL SUCCINATE (ER) 50 MG TAB.ER.24H PO SCH (09:00)
[2016-12-21] MEDS ORDERED: LOSARTAN 25 MG TAB PO SCH (09:00)
[2016-12-21] MEDS ORDERED: SPIRONOLACTONE 25 MG TAB PO SCH (09:00)
[2016-12-21 09:01] VITALS: PULSE 65
[2016-12-21] MEDS ORDERED: RIVAROXABAN 10 MG TAB PO STA (10:44)
--- NOTE | 2016-12-21 12:50 | P.PN ---
Subjective This is a 66-year-old gentleman with history of hypertension, hyperlipidemia, coronary artery disease with prior stent placement, prior nicotine dependence, regular EtOH use, who presents to the hospital with symptoms of abdominal pain that the patient states has been worsening over the past one week or so. More recently patient states that associated with the abdominal discomfort is also been short of breath, and becoming extremely weak. Patient apparently was instructed to come to the emergency room because of some abnormal lab findings. EKG on arrival here showed atrial flutter with a moderately rapid ventricular response. Repeat EKG continued to show atrial flutter, rapid ventricular response. Nonspecific ST-T wave changes. Intermittently it does appear that the patient has been in normal sinus rhythm with PACs and PVCs. Chest x-ray on admission reveals poor inspiration otherwise a negative exam. CTA of the chest negative for pulmonary embolism. CT of the brain reveals cerebral atrophy and chronic small vessel ischemia. 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 Abdominal ultrasound reveals what may be wall echo shadow complex within the gallbladder wall. No gallbladder wall thickening or Guadarrama's sign noted. Clinical correlation is recommended for possible cholecystitis. White blood cell count 14.3, hemoglobin 10.5, platelet count 423. D-dimer 1.25. Potassium on admission 2.5, 4.2 this morning. BUN 28 , creatinine 0.7. A niece in level on admission 1.5, 1.8 this morning. ALT 100 AST 51 alk phos 120. Troponins 0.042, 0.045, 0.037. Blood pressure on admission 105/60, heart rate in the 80s, patient went into atrial flutter and heart rate went up into the 130s, blood pressure 138/90. Cardiology consultation was requested because of arrhythmia. Patient was started on a Cardizem drip through the night last night, this was increased to 15 mg per hour with an additional 10 mg IV bolus. In spite of that patient continued to be in a rapid rate of 140s to 150s. IV Cardizem was discontinued and patient was initiated on IV amiodarone. At the time of my examination the heart rate continues to be in the 120 range. Patient was on Tenormin at home, he states he 's been on that for several years, that has not been resumed here. At the time of my examination this morning, patient continues to have mild abdominal discomfort, chest pain, no palpitations, states he feels short of breath while lying flat but not when he is sitting up and active. 12/21/2016 Patient continues to be in atrial fibrillation, rate under adequate control. He has been started on Xarelto for anticoagulation. Objective - Vital Signs Vital signs: Vital Signs Temp 97.2 F L 12/21/16 07:41 Pulse 65 12/21/16 09:01 Resp 18 12/21/16 08:00 BP 150/65 12/21/16 07:41 Pulse Ox 98 12/21/16 07:41 Intake & Output 12/20/16 12/21/16 12/21/16 18:59 06:59 18:59 Intake Total 556.385 888.51 Output Total 100 1025 Balance 456.385 -136.49 Weight 97.1 kg Intake: IV 180 0.9 20 meq@ 20mls/hr 180 Intake, IV Titration 316.385 708.51 Amount Heparin Sodium,Porcine/ 316.385 708.51 D5w Pmx 25,000 unit In Dextrose/Water 1 500ml. bag @ 10.57 UNITS/KG/HR 19.99 mls/hr IV .Q24H [facility] Rx#:[id number] Oral 240 Output: Urine 100 1025 Other: Voiding Method Urinal Urinal - Exam PHYSICAL EXAMINATION: HEENT: Head is atraumatic, normocephalic. Pupils equal, round. Neck is supple. There is elevated jugular venous pressure. HEART EXAMINATION: Heart S1 and S2 irregularly irregular CHEST EXAMINATION: Lungs reveal decreased air exchange with diminished air entry bilaterally. ABDOMEN: Soft, mild generalized tenderness. Bowel sounds are heard. No organomegaly noted. EXTREMITIES: 2+ peripheral pulses with evidence of peripheral edema and no calf tenderness noted. NEUROLOGIC patient is awake, alert and oriented -3. - Labs CBC & Chem 7: 12/21/16 05:46 12/21/16 05:46 Labs: Abnormal Lab Results - Last 24 Hours (Table) 12/20/16 12/20/16 12/20/16 Range/Units 13:15 16:38 20:56 WBC (3.8-10.6) k/uL RBC (4.30-5.90) m/uL Hgb (13.0-17.5) gm/dL Hct (39.0-53.0) % Neutrophils # (1.3-7.7) k/uL APTT 71.0 H (22.0-30.0) sec Glucose (74-99) mg/dL POC Glucose (mg/dL) 142 H 198 H (75-99) mg/dL Calcium (8.4-10.2) mg/dL Total Protein (6.3-8.2) g/dL Albumin (3.5-5.0) g/dL 12/21/16 12/21/16 12/21/16 Range/Units 05:45 05:46 05:46 WBC 11.4 H (3.8-10.6) k/uL RBC 3.69 L (4.30-5.90) m/uL Hgb 10.9 L (13.0-17.5) gm/dL Hct 34.6 L (39.0-53.0) % Neutrophils # 9.8 H (1.3-7.7) k/uL APTT (22.0-30.0) sec Glucose 107 H (74-99) mg/dL POC Glucose (mg/dL) 128 H (75-99) mg/dL Calcium 8.1 L (8.4-10.2) mg/dL Total Protein 5.3 L (6.3-8.2) g/dL Albumin 2.7 L (3.5-5.0) g/dL 12/21/16 Range/Units 05:46 WBC (3.8-10.6) k/uL RBC (4.30-5.90) m/uL Hgb (13.0-17.5) gm/dL Hct (39.0-53.0) % Neutrophils # (1.3-7.7) k/uL APTT 56.3 H (22.0-30.0) sec Glucose (74-99) mg/dL POC Glucose (mg/dL) (75-99) mg/dL Calcium (8.4-10.2) mg/dL Total Protein (6.3-8.2) g/dL Albumin (3.5-5.0) g/dL Microbiology - Last 24 Hours (Table) 12/16/16 16:11 Blood Culture - Preliminary Blood No Growth after 96 hours Assessment and Plan Plan: Assessment and plan #1 symptoms of abdominal discomfort, ultrasound of the abdomen did not reveal any significant findings. GI service on the case. Possible cholecystitis. #2 atrial flutter with rapid ventricular response, paroxysmal, new onset. #3 hypertension #4 prior nicotine dependence #5 regular EtOH use #6 shortness of breath, could be secondary to atrial flutter with rapid ventricular response. Chest x-ray did not reveal any acute findings. We will obtain a BNP level. #7 abnormal troponins, not suggestive of acute coronary syndrome, could be secondary to oxygen supply and demand mismatch #8 coronary artery disease with prior stent placement #9 history of hyperlipidemia, untreated Plan From cardiology's perspective, we'll recommend to continue the patient on his current medications. He has also been initiated today on anticoagulation in the form of Eliquis. Patient again was instructed regarding the importance of EtOH cessation. DNP note has been reviewed, I agree with a documented findings and plan of care. Patient was seen and examined.
--- NOTE | 2016-12-21 17:03 | PN ---
CHIEF COMPLAINT: Difficulty breathing, fever, headache and atrial fibrillation. HISTORY OF PRESENT ILLNESS: This gentleman is doing well and breathing is much better. He has had no chest pain. Headache has gone. He is doing well. He would like to go home. This will be discussed with Cardiology and his release will be pending their considerations. PHYSICAL EXAM: He still has rales and rhonchi, but they are improved. He has slight wheezing on expiration. Cardiac exam demonstrates atrial fibrillation with a controlled rate. The abdomen is soft and non-tender. IMPRESSION: 1. Bronchitis. 2. Pneumonitis. 3. Headache, unexplained. 4. Chronic obstructive pulmonary disease. 5. Atrial fibrillation. 6. Congestive heart failure. 7. Unexplained anemia. PLAN: Probably home today pending recommendations from Cardiology. VAN
--- NOTE | 2016-12-21 17:23 | DS ---
DATE OF SERVICE: 12/21/2016 CHIEF COMPLAINT: Fever, cough, congestion, headache and shortness of breath. HISTORY OF PRESENT ILLNESS AND PHYSICAL EXAM: The details of this man's history and physical can be found in the initial workup. LABORATORY STUDIES: While he was in the hospital he had laboratory studies, details of which can be found in the laboratory section of his chart. COURSE IN THE HOSPITAL: After admission he was placed on bedrest and started on intravenous fluids and started empirically on antibiotics. He was seen by Pulmonology. It was felt that he probably had a right lower lobe pneumonitis. His breathing remained difficult and restricted and then gradually began to improve. While in the hospital he had a severe headache, but no obvious pathology was identified, and this also subsided with time. He was doing fairly well and then went into atrial fibrillation with rapid ventricular response, for which he was anticoagulated and seen by Cardiology. Heart rate was controlled and he started to feel better. It was felt that he could go home on light activity about the house, and he will be set up with an BitPosterraft machine and DuoNeb q.i.d. and p.r.n., Qvar 80 two puffs twice a day, levofloxacin 500 mg once a day for 10 days, Xarelto 20 mg once a day, losartan 25 mg once a day, Carvedilol 3.125 mg twice a day, pantoprazole 40 mg once a day, spironolactone 25 mg once a day and furosemide 40 mg once a day. He will be seen in the office the day after discharge, and he will be contacted by the complex chronic care nurse. FINAL DIAGNOSES: 1. Right lower lobe pneumonitis. 2. Bronchitis. 3. Chronic obstructive pulmonary disease. 4. Congestive heart failure. 5. Atrial fibrillation with rapid ventricular response. 6. Headache, etiology unknown. 7. Anemia, etiology unknown. OPERATIONS: None. CONSULTATIONS: 1. Cardiology. 2. Pulmonology. He is improved. VAN
--- NOTE | 2016-12-28 14:36 | CDI ---
CHF is documented throughout the medical record. . History/Risk Factors: Patient has a hx of CHF, coronary artery disease, HTN, history of AR, alcohol abuse Echocardiogram Results: EF 20-25% Consults: Cardiology consult In your professional opinion, can you please clarify the acuity and type of CHF if known? Systolic Heart Failure: Acute Chronic Acute on Chronic Diastolic Heart Failure: Acute Chronic Acute on Chronic Systolic & Diastolic Heart Failure: Acute Chronic Acute on Chronic Unable to determine Other, please specify Please document in your progress notes and discharge summary in order to capture severity of illness and risk of mortality. Include clinical findings that support your diagnosis. If you have any questions about this query, please contact Geetha Obrien Beehive Kiln Supervisor at [phone] between 8am and 5pm. FYI: Press F11 to launch patient chart. VAN
--- NOTE | 2017-01-02 15:01 | CDI ---
Atrial Flutter is documented throughout the medical record. Clinical Indicators: Blood pressure on admission 105/60, heart rate in the 80s, patient went into atrial flutter and heart rate went up into the 130s, blood pressure 138/90. EKG/telemetry: Atrial flutter Treatment: pt was given Atenolol Consults: Cardiology In your professional opinion, can you please clarify the type of atrial flutter if known? Typical/Type I Atypical/Type II Other, please specify Unable to determine Please document in your progress notes and discharge summary in order to capture severity of illness and risk of mortality. Include clinical findings that support your diagnosis. If you have any questions about this query, please contact Geetha Obrien Aerial Erector at [phone] between 8am and [address]pm. Place X here if this finding has no clinical significance, is not applicable or if you are not able to provide any additional documentation. VAN
--- NOTE | 2017-01-02 15:11 | CDI ---
Atrial fibrillation is documented throughout the medical record. Clinical Indicators: Atrial fib with rapid ventricular response for which he was anticoagulated. EKG/telemetry: Atrial Fib Consults: Cardiology In your professional opinion, can you please clarify the type of atrial fibrillation, if known? Chronic/Permanent Paroxysmal Persistent Other, please specify Unable to determine Please document in your progress notes and discharge summary in order to capture severity of illness and risk of mortality. Include clinical findings that support your diagnosis. If you have any questions about this query, please contact Geetha Obrien Paper Cup Machine Tender at [phone] between 8am and 5pm. FYI: Press F11 to launch patient chart MTDD
--- NOTE | 2017-01-02 15:18 | CDI ---
CHF is documented throughout the medical record. . History/Risk Factors: Patient has a hx of CHF, coronary artery disease, HTN, history of GA, alcohol abuse Echocardiogram Results: EF 20-25% Consults: Cardiology consult In your professional opinion, can you please clarify the acuity and type of CHF if known? Systolic Heart Failure: Acute Chronic Acute on Chronic Diastolic Heart Failure: Acute Chronic Acute on Chronic Systolic & Diastolic Heart Failure: Acute Chronic Acute on Chronic Unable to determine Other, please specify Please document in your progress notes and discharge summary in order to capture severity of illness and risk of mortality. Include clinical findings that support your diagnosis. If you have any questions about this query, please contact Geetha Obrien Glove Maker at [phone] between 8am and 5pm. FYI: Press F11 to launch patient chart. VAN
--- NOTE | 2017-01-12 14:01 | P.PN ---
Progress Note - Text This is an addendum to the cardiology progress note prior dictated. Patient had systolic congestive heart failure acute on chronic. He also presented with an atypical atrial flutter as well as paroxysmal atrial fibrillation. DNP note has been reviewed, I agree with a documented findings and plan of care. Patient was seen and examined.
== END 2016-12-21 11:53 | disposition home or self-care (01) | DRG 190 ==
LOC: EC 12:30 → 6SEL 15:32
PROVIDERS: ADMIT Family Medicine; ATTEND Family Medicine
DX: J44.0 Chronic obstructive pulmonary disease with (acute) lower respiratory infection (principal); J18.9 Pneumonia, unspecified organism; I50.23 Acute on chronic systolic (congestive) heart failure; I48.0 Paroxysmal atrial fibrillation; I11.0 Hypertensive heart disease with heart failure; E83.42 Hypomagnesemia; K81.9 Cholecystitis, unspecified; I48.4 Atypical atrial flutter; E86.0 Dehydration; E78.5 Hyperlipidemia, unspecified; R63.0 Anorexia; E87.6 Hypokalemia; D64.9 Anemia, unspecified; J44.1 Chronic obstructive pulmonary disease with (acute) exacerbation; R51 Headache; R63.4 Abnormal weight loss; R73.9 Hyperglycemia, unspecified; K59.00 Constipation, unspecified; R00.0 Tachycardia, unspecified; I25.10 Atherosclerotic heart disease of native coronary artery without angina pectoris; I44.30 Unspecified atrioventricular block; F10.20 Alcohol dependence, uncomplicated; Z96.60 Presence of unspecified orthopedic joint implant; Z82.49 Family history of ischemic heart disease and other diseases of the circulatory system; Z79.899 Other long term (current) drug therapy; Z91.041 Radiographic dye allergy status; I25.2 Old myocardial infarction; Z87.891 Personal history of nicotine dependence; Z95.5 Presence of coronary angioplasty implant and graft; Z82.5 Family history of asthma and other chronic lower respiratory diseases; Z83.3 Family history of diabetes mellitus; Z80.1 Family history of malignant neoplasm of trachea, bronchus and lung; Z91.013 Allergy to seafood; Z91.018 Allergy to other foods; Z71.41 Alcohol abuse counseling and surveillance of alcoholic
CPT/HCPCS: 36415; 70450; 71020; 71275; 76700; 80048; 80053; 81003; 82150; 82550; 82553; 83036; 83605; 83690; 83735; 83880; 84100; 84132; 84443; 84484; 85025; 85379; 85610; 85730; 87040; 93005; 93306; 94640; 94760; 96361; 96365; 96366; 96375; 99285

== ENCOUNTER 2017-01-15 07:47 | Day surgery (SDC) | payer MEDICARE ==
[2017-01-12 09:43] VITALS: BMI 28.8
[~2017-01-15 07:47] MED LIST: ALPRAZolam 0.25 MG TAB PO PRN; ALPRAZolam 0.5 MG TAB PO PRN; ASPIRIN 325 MG TAB PO STA; ATORVASTATIN 80 MG TAB PO STA; NITROGLYCERIN SL TABS 0.4 MG TAB SUBLINGUAL PRN; SODIUM CHLORIDE 0.9% 1,000 ML in EMPTY BAG 1 BAG IV ONE
[2017-01-15 08:27] VITALS: PULSE 64; RESP 20; TEMP 97.8
[2017-01-15] MEDS ORDERED: MIDAZOLAM 2 MG/2 ML VIAL ONE (09:12)
[2017-01-15] MEDS ORDERED: VERAPAMIL 2.5 MG/ML 2 ML AMP ONE (09:12)
[2017-01-15] MEDS ORDERED: HEPARIN SODIUM 1,000 UN/ML (10ML VL) ONE (09:12)
[2017-01-15] MEDS ORDERED: LIDOCAINE 2% INJ 20 MG/ML (20 ML MDV) ONE (09:14)
[2017-01-15] MEDS ORDERED: MIDAZOLAM 2 MG/2 ML VIAL IV ONE (09:35)
[2017-01-15] MEDS ORDERED: SODIUM CHLORIDE 0.9% 1,000 ML IV ONE (09:38)
[2017-01-15] MEDS ORDERED: diphenhydrAMINE 50 MG/ML 1 ML VIAL ONE (09:39)
[2017-01-15] MEDS ORDERED: LIDOCAINE 2% INJ 20 MG/ML SQ ONE (09:41)
[2017-01-15] MEDS ORDERED: diphenhydrAMINE 50 MG/ML 1 ML VIAL IVP ONE (09:41)
[2017-01-15] MEDS: VERAPAMIL SYRINGE (5 MG/10 ML) INTRAARTER ONE ×2 (09:43→10:02)
[2017-01-15] MEDS ORDERED: HEPARIN SODIUM 1,000 UN/ML (10ML VL) IV ONE (09:46)
[2017-01-15] MEDS ORDERED: IOHEXOL 350 MG/ML 125ML BOTTLE INJ ONE (10:02)
[2017-01-15] MEDS ORDERED: RX INFO: IV CONTRAST WAS GIVEN 1 EACH MISC MISCELLANE PRN (10:08)
[2017-01-15] MEDS ORDERED: SODIUM CHLORIDE 0.9% 1,000 ML IV SCH (10:15)
--- NOTE | 2017-01-15 10:55 | CC ---
CARDIAC CATHETERIZATION REPORT DATE OF SERVICE: 01/15/2017 PERFORMING PHYSICIAN: Cesar Quinteros MD, rat culturist. PROCEDURE PERFORMED: 1. Selective right and left coronary angiogram. 2. Left heart catheterization. 3. Left ventriculography. INDICATION: This is a pleasant 66-year-old gentleman who was admitted to the hospital recently with acute respiratory failure and he was diagnosed with severe cardiomyopathy. The heart catheterization is to rule out any severe underlying CAD. Also he is known to have coronary artery disease with known chronic total occlusion of the right as well as angioplasty of the left circumflex. APPROACH: Right radial artery. COMPLICATION: None. LEVEL OF SEDATION: Moderate with sedation length of 24 minutes. PROCEDURE DESCRIPTION: After obtaining an informed consent, the patient was brought to cardiac aquatic laborer. The right radial artery was cannulated using micropuncture technique, the micropuncture wire passed easily. Then I placed a 6-Chinese sheath in the right radial artery. Subsequently I gave the patient 2 mg of verapamil IA and 8000 units of heparin IV. After that, I did selective right and left coronary angiogram using JR4 and JL3.5 catheters. After that, I did a left heart catheterization and left ventriculography using a 6-Chinese pigtail catheter. The procedure was completed without any complication. SELECTIVE CORONARY ANGIOGRAM: 1. The right coronary artery is a large caliber vessel and it is a dominant vessel. The RCA is chronically occluded in the distal portion and and fills by collateral from the left coronary system. 2. The left main is a large caliber vessel. It is angiographically normal. It bifurcates into the left circumflex and left anterior descending artery. 3. The left circumflex is a large caliber vessel. It is a nondominant vessel. The proximal left circumflex appeared to be angiographically normal. The mid left circumflex has a lesion is eccentric and seems to be in the range of 50%. This is just proximal to the bifurcation of the first OM branch, which is a large caliber vessel with mild disease only. The left circumflex continues after that as a small- caliber vessel in the AV groove and gives collateral to the RCA. 4. The left anterior descending artery. The proximal LAD appeared to have mild disease only and gives rise into a small diagonal branch, which seems to be angiographically normal. The mid LAD and distal LAD are angiographically normal. The LAD also gives collaterals through septal perforators to the RCA. HEMODYNAMICS: The left ventricular end-diastolic pressure was 12 mmHg. No gradient was identified across the aortic valve. LEFT VENTRICULOGRAPHY: Left ventriculography was performed in the WEN projection using a power injection. The left ventricular systolic function is impaired with EF about 35% to 40% with dilated left ventricle. CONCLUSION: 1. Chronic total occlusion of the right coronary artery which fills by collaterals from the left coronary system, this is known from before. 2. Normal left main coronary artery. 3. Intermediate disease involving the mid left circumflex. 4. Mild disease involving the LAD system. 5. Normal left ventricular end-diastolic pressure. 6. Impaired left ventricular function with an ejection fraction around between 35% to 40% with dilated left ventricle and inferobasal akinesia. POSTPROCEDURE MANAGEMENT: 1. Maximize medical treatment. 2. Follow up with the patient. MERON / JOE: [id number] /
[2017-01-15 16:14] VITALS: BP 108/57
== END 2017-01-15 16:40 | disposition home or self-care (01) ==
LOC: CATHCVL 07:47
PROVIDERS: ATTEND Internal Medicine Interventional Cardiology
DX: I25.10 Atherosclerotic heart disease of native coronary artery without angina pectoris (principal); I11.0 Hypertensive heart disease with heart failure; I25.82 Chronic total occlusion of coronary artery; I50.9 Heart failure, unspecified; Z87.891 Personal history of nicotine dependence; I42.9 Cardiomyopathy, unspecified; I48.0 Paroxysmal atrial fibrillation; Z79.01 Long term (current) use of anticoagulants; E78.5 Hyperlipidemia, unspecified; Z82.49 Family history of ischemic heart disease and other diseases of the circulatory system; Z79.51 Long term (current) use of inhaled steroids; Z79.899 Other long term (current) drug therapy; Z91.041 Radiographic dye allergy status
CPT/HCPCS: 99152; 99153; 93458; C1894; J2001; J2250; J1200; J1644; Q9967

== ENCOUNTER 2017-05-29 11:58 | Day surgery (SDC) | payer MEDICARE ==
[2017-05-28 13:00] VITALS: BMI 28.1
[~2017-05-29 11:58] MED LIST changes: -ALPRAZolam 0.25 MG TAB PO PRN; -ALPRAZolam 0.5 MG TAB PO PRN; -ASPIRIN 325 MG TAB PO STA; -ATORVASTATIN 80 MG TAB PO STA; +LACTATED RINGERS 1,000 ML IV SCH; +MIDAZOLAM 2 MG/2 ML VIAL IV PRN; +MORPHINE SULFATE 4 MG/ML SYRINGE IV PRN; -NITROGLYCERIN SL TABS 0.4 MG TAB SUBLINGUAL PRN; +SODIUM CHLORIDE 0.9% 1,000 ML IV SCH; -SODIUM CHLORIDE 0.9% 1,000 ML in EMPTY BAG 1 BAG IV ONE
[2017-05-29] MEDS ORDERED: GLYCOPYRROLATE 0.2 MG/ML 2 ML VIAL ONE (12:50)
[2017-05-29] MEDS ORDERED: PROPOFOL 10 MG/ML 20 ML VIAL IV ONE (12:50)
[2017-05-29] MEDS ORDERED: HYDROmorphone (PF) 1 MG/ML ONE (12:50)
[2017-05-29] MEDS ORDERED: SUCCINYLCHOLINE CHLORIDE 100 MG/5 ML SYR IV ONE (12:50)
[2017-05-29] MEDS ORDERED: LIDOCAINE 1% INJ 10MG/ML (20 ML MDV) ONE (12:50)
[2017-05-29] MEDS ORDERED: fentaNYL (PF) 50 MCG/ML 2 ML AMP ONE (12:50)
[2017-05-29] MEDS ORDERED: MIDAZOLAM 2 MG/2 ML VIAL ONE (12:50)
[2017-05-29] MEDS ORDERED: NEOSTIGMINE 1 MG/ML 10 ML VIAL ONE (12:50)
[2017-05-29] MEDS ORDERED: ROCURONIUM BROMIDE 10 MG/ML 10 ML VIAL IV ONE (12:50)
[2017-05-29] MEDS ORDERED: IV FLUID CONTINUATION 1,000 ML IV ONE (12:50)
[2017-05-29] MEDS ORDERED: HEPARIN SODIUM (1,000 UNIT/ML) 1,000 UNIT in SODIUM CHLORIDE 0.9% 1,000 ML IRRIGATION ONE (13:20)
[2017-05-29] MEDS ORDERED: LIDOCAINE 2% INJ 20 MG/ML SQ ONE (13:31)
[2017-05-29] MEDS ORDERED: ACETAMINOPHEN TAB 325 MG TAB PO PRN (16:07)
[2017-05-29] MEDS ORDERED: ACETAMINOPHEN IV (For NPO) 1,000 MG in EMPTY BAG 1 BAG IVPB ONE (16:07)
[2017-05-29] MEDS ORDERED: HYDROcodone/APAP 5-325MG 1 EACH TAB PO PRN (16:07)
[2017-05-29] MEDS ORDERED: IPRATROPIUM-ALBUTEROL 3 ML NEB INHALATION PRN (16:08)
--- NOTE | 2017-05-29 17:26 | CE ---
CARDIAC ELECTROPHYSIOLOGY REPORT This is a 67-year-old male patient with known cardiomyopathy, both ischemic and nonischemic, who has atrial flutter. His LV function has improved from 20% to 25% to 40% to 45% on medical treatment. He has a chronically occluded RCA with old inferior wall IL. He has symptomatic atrial flutter as well as atrial fibrillation and he was brought in for atrial flutter ablation as well as risk stratification for sudden cardiac . The patient was brought to the EP lab in a fasting state. Written informed consent was obtained prior to the procedure. The procedure was performed under general anesthesia. Venous sheaths were placed in the right and left femoral veins. Via these, diagnostic catheters were placed in the high right atrium, His bundle, right ventricle and coronary sinus. Sinus cycle length 1121 milliseconds, NV interval 146 milliseconds, QRS 112 milliseconds, QT interval 481 milliseconds. Sinus node recovery times at 600 and 500 milliseconds were 894 and 1095 milliseconds. The AH interval was 80 milliseconds, HV interval 44 milliseconds. Burst stimulation was performed from the right ventricle from 400 milliseconds down to 300 milliseconds. No inducible VT. VA Wenckebach block 480 milliseconds. VAERP 600/440 milliseconds. Ventricular extrastimulation was performed after double extrastimuli, 2 drive trains capture. A nonsustained ventricular tachycardia was induced only when Isuprel was used. No sustained ventricular tachycardia. Isuprel was started wide open and then 2 mcg and ventricular extrastimulation was performed. Nonsustained ventricular tachycardia for 3 to 4 beats VT was induced for 3 to 4 beats, but no sustained arrhythmia was noted. CS pacing was performed. pacing was performed. No other arrhythmia was induced. Following that, intracardiac echocardiography was performed. Three-D mapping was performed. RF ablation was performed for atrial flutter. An RF line of block in the middle of the cava tricuspid isthmus and bidirectional block was proven at the end of the procedure. Split potentials of greater than 95 milliseconds were noted along the line. All catheters were then removed. The patient was extubated and transferred back to the observation unit. RESULT: 1. Diagnostic EP study revealing normal AH and HV intervals. 2. No inducible supraventricular tachycardia. 3. No inducible ventricular tachycardia. 4. Successful mapping and ablation for atrial flutter with 2:1 bidirectional block. PLAN: Increase spironolactone to 50 mg p.o. daily. Patient was mildly hypokalemic. Continue Xarelto. Continue other medications. Continue statins and switch to a baby aspirin. MMODL / IJN: [id number] /
[2017-05-29] MEDS: BUDESONIDE 1 MG/2 ML NEBU INHALATION SCH (20:25)
[2017-05-29] MEDS: CARVEDILOL 6.25 MG TAB PO SCH (21:12)
[2017-05-30 04:09] VITALS: RESP 18
[2017-05-30] MEDS ORDERED: PANTOPRAZOLE 40 MG TABLET PO SCH (07:30)
[2017-05-30] MEDS: BUDESONIDE 1 MG/2 ML NEBU INHALATION SCH (08:03)
[2017-05-30] MEDS: CARVEDILOL 6.25 MG TAB PO SCH (08:52)
[2017-05-30] MEDS ORDERED: RIVAROXABAN 10 MG TAB PO SCH (09:00)
[2017-05-30] MEDS ORDERED: ASPIRIN 325 MG TAB PO SCH (09:00)
[2017-05-30] MEDS ORDERED: FUROSEMIDE 40 MG TAB PO SCH (09:00)
[2017-05-30] MEDS ORDERED: SPIRONOLACTONE 25 MG TAB PO SCH (09:00)
[2017-05-30] MEDS ORDERED: LOSARTAN 25 MG TAB PO SCH (09:00)
[2017-05-30 11:54] VITALS: BP 113/55; PULSE 60; TEMP 97.8
--- NOTE | 2017-05-30 12:49 | P.DS ---
Providers Attending physician: Franco May Primary care physician: Kermit Guerrahven [facility] Course: Patient is doing well. He denies any chest discomfort or undue shortness of breath. He does have a cough and is a chronic smoker with chronic lung disease grams of he well heart sounds are normal breath sounds are reduced bilaterally no rhonchi no crackles abdomen soft nontender extremities are warm Impression Atrial flutter status post successful ablation yesterday Chronically occluded RCA, CAD old inferior wall OR Improvement in LV function now the mid 40s Ventricle estimate study yesterday did not resulted in induction of any ventricular tachyarrhythmias Suggest Increase the dose of spironolactone, potassium was mildly reduced continue current myopathy medications continue atherosclerosis medications follow-up in about 2 weeks Impression Atrial flutter status post successful ablation Ischemic cardio myopathy with improvement in AV node function from 20% to 45% Inferior wall hypokinesis consistent with an old myocardial infarction and a chronically occluded RCA was filled by [id number] collaterals paroxysmal atrial fibrillation Prior history of alcohol use, complete abstinence recommended Noninducible for sustained VT, with a ventricular stimulation protocol on and off Isuprel Mild hypokalemia despite spironolactone 25 mg by mouth daily Suggest Discharge home Follow up with Dr. Cuellar 2 weeks Increase dose of spironolactone to 50 mg by mouth daily All other medications including anticoagulation Patient Condition at Discharge: Stable Plan - Discharge Summary Discharge Rx Participant: No New Discharge Prescriptions: New Spironolactone [Aldactone] 50 mg PO DAILY #30 tab Atorvastatin [Lipitor] 40 mg PO DAILY #30 tablet Aspirin 81 mg PO DAILY #30 chewable Discontinued Spironolactone [Aldactone] 25 mg PO DAILY #30 tablet Aspirin 325 mg PO DAILY No Action Beclomethasone Dip 80 Mcg/Puff [Qvar 80 mcg] 2 puff INHALATION BID #1 puff Furosemide [Lasix] 40 mg PO DAILY #30 tablet Losartan [Cozaar] 25 mg PO DAILY #30 tab Pantoprazole Sodium [Protonix] 40 mg PO DAILY #30 tablet. Rivaroxaban [Xarelto] 20 mg PO DAILY #30 tab Ipratropium-Albuterol Nebulize [Duoneb 0.5 mg-3 mg/3 ml Soln] 3 ml INHALATION QID PRN PRN Reason: SHORTNESS OF BREATH Carvedilol [Coreg] 6.25 mg PO BID Discharge Medication List Beclomethasone Dip 80 Mcg/Puff [Qvar 80 mcg] 2 puff INHALATION BID #1 puff 12/21 [Rx] Furosemide [Lasix] 40 mg PO DAILY #30 tablet 12/21/16 [Rx] Losartan [Cozaar] 25 mg PO DAILY #30 tab 12/21/16 [Rx] Pantoprazole Sodium [Protonix] 40 mg PO DAILY #30 tablet. 12/21/16 [Rx] Rivaroxaban [Xarelto] 20 mg PO DAILY #30 tab 12/21/16 [Rx] Carvedilol [Coreg] 6.25 mg PO BID 01/12/17 [History] Ipratropium-Albuterol Nebulize [Duoneb 0.5 mg-3 mg/3 ml Soln] 3 ml INHALATION QID PRN 01/12/17 [History] Aspirin 81 mg PO DAILY #30 chewable 05/29/17 [Rx] Atorvastatin [Lipitor] 40 mg PO DAILY #30 tablet 05/29/17 [Rx] Spironolactone [Aldactone] 50 mg PO DAILY #30 tab 05/29/17 [Rx] Follow up Appointment(s)/Referral(s): Franco May MD [STAFF PHYSICIAN] - 2 Weeks (Office will call with appointment. ) Activity/Diet/Wound Care/Special Instructions: Post EP study - Ablation instructions 1. Keep access sites dry for 2 days. 2. No heavy lifting or straining for 2 days. 3. Avoid bending the hips repeatedly for 2 days. 4. You may go up and down stairs slowly Call if the following is noted 1. Bleeding, increasing swelling or pain at the access sites. 2. Increasing chest discomfort, especially upon taking a deep breath. 3. Increasing shortness of breath, at rest or with exertion. 4. Undue cough / phlegm 5. Difficulty or pain while swallowing. 6. Pain or change in color in the extremities. 7. Fever, chills, rigors. 8. Increasing headache or neurologic symptoms. 9. Dizziness, fainting, palpitations Please note Reduce aspirin to 81 mg by mouth daily Atorvastatin 40 mg by mouth daily. He should be on this medication and it was not on his home list Continue Xarelto for stroke prevention, lifelong Increase the dose of spironolactone to 50 mg daily Discharge Disposition: HOME SELF-CARE
--- NOTE | 2017-05-30 20:28 | PN ---
PROGRESS NOTE DATE OF SERVICE: 05/30/2017. CHIEF COMPLAINT: Status post ablation. HISTORY OF PRESENT ILLNESS: This gentleman is doing well and he is having no chest pain, shortness of breath, lightheadedness, etc. He is in sinus rhythm. He may go home today. PHYSICAL EXAMINATION: Chest is quite clear. It sounds like he is in sinus rhythm. The abdomen is soft, nontender and slightly protuberant. IMPRESSION: 1. Arrhythmia, status post ablation. 2. Cardiomyopathy. 3. Hypertension. 4. Chronic obstructive pulmonary disease. 5. Alcoholism. PLAN: Probably home today. MMODL / IJN: [id number] /
--- NOTE | 2017-05-30 20:28 | CONS ---
CONSULTATION CHIEF COMPLAINT: Tachy arrhythmia. HISTORY OF PRESENT ILLNESS: This is another admission for this 67-year-old gentleman who was brought in for elective cardioversion and ablation. He is doing well. He has had no recent chest pain. He has a cardiomyopathy. REVIEW OF SYSTEMS: He has had no fever, no chills, chest pain, orthopnea PND, nausea, vomiting, diarrhea, melena, renal failure, etc. Past medical history, family history, personal and social history are unremarkable and noncontributory otherwise and can be found in his admitting summary. He is allergic to IODIDES. MEDICATIONS: Include: 1. Lipitor 40. 2. Updrafts with albuterol and Atrovent. 3. Coreg 12.5 b.i.d. 4. Entresto 49/50, 1 twice a day. 5. Lasix 40 once a day. 6. Qvar 80, 2 puffs b.i.d. 7. Pantoprazole 40 mg once a day. 8. Spironolactone 25 once a day. 9. Xarelto 20 mg once a day. The remainder of his history is unremarkable. He has quit drinking and he is trying to give up smoking. PHYSICAL EXAM: Blood pressure 124/80 with a pulse of 70 and regular, respirations 16. He is afebrile. GENERAL: Appeared to be well developed, well nourished, in no acute distress. Skin color is normal. Skin is warm and dry. Lymph nodes are not enlarged. Head, ears, eyes, nose, mouth, and throat were normal. Neck veins were not distended. Chest demonstrated increased AP diameter. The cardiac exam is normal and it sounds like it is in sinus rhythm. The abdomen is protuberant, round, soft and nontender. There are no masses or visceromegaly. Bowel sounds present and extremities are normal. Neurologic was intact. IMPRESSION: 1. Supraventricular arrhythmia. 2. Alcoholic cardiomyopathy. 3. Chronic obstructive pulmonary disease. 4. Congestive heart failure. RECOMMENDATION: None. He is apparently doing well. MMODL / IJN: [id number] /
== END 2017-05-30 14:00 | disposition home or self-care (01) ==
LOC: CATHEP 11:58 → 3OBS 15:46 → CATHEP 05-30 14:00
PROVIDERS: ATTEND Internal Medicine Clinical Cardiac Electrophysiology
DX: I48.3 Typical atrial flutter (principal); I48.0 Paroxysmal atrial fibrillation; I11.0 Hypertensive heart disease with heart failure; I50.9 Heart failure, unspecified; F17.210 Nicotine dependence, cigarettes, uncomplicated; I25.5 Ischemic cardiomyopathy; Z95.5 Presence of coronary angioplasty implant and graft; F10.20 Alcohol dependence, uncomplicated; I42.6 Alcoholic cardiomyopathy; J44.9 Chronic obstructive pulmonary disease, unspecified; I25.2 Old myocardial infarction; E78.5 Hyperlipidemia, unspecified; Z79.2 Long term (current) use of antibiotics; Z79.01 Long term (current) use of anticoagulants; Z79.51 Long term (current) use of inhaled steroids; Z79.899 Other long term (current) drug therapy; Z91.013 Allergy to seafood; Z91.018 Allergy to other foods; Z91.041 Radiographic dye allergy status
CPT/HCPCS: 94640 ×2; 94760; 93623; 93662; 93613; 93653; C1894; C1769 ×2; C1893; C1730 ×2; C1759; C1732; J2001 ×2; J2250; J2710; J3010; J1644; J1170; J0330; J2704

== ENCOUNTER 2018-04-26 04:22 | Emergency (ER) | payer MEDICARE ==
[2018-04-26 04:36] LABS: Glucose,Whole Blood 169 mg/dL (75-99)
[2018-04-26] MEDS ORDERED: diphenhydrAMINE 50 MG/ML 1 ML VIAL IVP STA (04:40)
[2018-04-26] MEDS ORDERED: FAMOTIDINE 20 MG/2 ML VIAL IV STA (04:40)
[2018-04-26] MEDS ORDERED: methylPREDNISolone SOD SUCCI 125 MG/2 ML VIAL IV STA (04:40)
--- NOTE | 2018-04-26 04:41 | CT ---
EXAMINATION TYPE: CT brain wo con for TPA DATE OF EXAM: 04/26/2018 COMPARISON: 12/16/2016 HISTORY: CODE STROKE CT DLP: 1126 mGycm Automated exposure control for dose reduction was used. FINDINGS: There is cerebral cortical atrophy. There is no mass effect nor midline shift. There is a 1.3 cm roun ded area of high attenuation in the anterior right temporal lobe in the middle cranial fossa. This is also present on the old CT scan of 12/16/2016 and could be a meningioma. There is no edema adjacent. I see no evidence of acute intracranial hemorrhage. There is some hypodensity in the periventricular white matter. IMPRESSION: CEREBRAL ATROPHY AND CHRONIC SMALL VESSEL ISCHEMIA. NO HEMORRHAGE. NO CHANGE COMPARED TO OLD EXAM.
--- NOTE | 2018-04-26 04:44 | ED ---
Neuro HPI - General Stated Complaint: Neuro Deficits Time Seen by Provider: 04/26/18 04:29 Source: patient, EMS Limitations: altered mental status - History of Present Illness Is the patient presenting with stroke symptoms?: Yes Initial Comments: This patient is 67-year-old man brought ambulance to be evaluated for suspected stroke. It is reported that the patient's called at 3:55 AM. EMS arrived and found the patient to have left-sided flaccid paralysis and they transported him here. The patient also had oxygen saturations in the 80s and they placed him on nonrebreather mask. Also started IV. I'm not able at this point yet to establish the exact last known well time, as the patient's is not here. Location: left arm, left leg History of same: No Place: home Severity: severe Improves With: none Worsens With: none Associated Symptoms: shortness of breath Treatments Prior to Arrival: none - Related Data Home Medications: Home Medications Medication Instructions Recorded Confirmed Carvedilol [Coreg] 6.25 mg PO BID 01/12/17 05/28/17 Ipratropium-Albuterol Nebulize 3 ml INHALATION QID PRN 01/12/17 05/28/17 [Duoneb 0.5 mg-3 mg/3 ml Soln] Previous Rx's Medication Instructions Recorded Beclomethasone Dip 80 Mcg/Puff 2 puff INHALATION BID #1 puff 12/21/16 [Qvar 80 mcg] Furosemide [Lasix] 40 mg PO DAILY #30 tablet 12/21/16 Losartan [Cozaar] 25 mg PO DAILY #30 tab 12/21/16 Pantoprazole Sodium [Protonix] 40 mg PO DAILY #30 tablet. 12/21/16 Rivaroxaban [Xarelto] 20 mg PO DAILY #30 tab 12/21/16 Aspirin 81 mg PO DAILY #30 chewable 05/29/17 Atorvastatin [Lipitor] 40 mg PO DAILY #30 tablet 05/29/17 Spironolactone [Aldactone] 50 mg PO DAILY #30 tab 05/29/17 Allergies/Adverse Reactions: Allergies Allergy/AdvReac Type Severity Reaction Status Date / Time Iodinated Contrast- Oral and Allergy Anaphylaxis Verified 05/28/17 12:52 IV Dye iodine Allergy Anaphylaxis Verified 01/12/17 09:52 onion Allergy Anaphylaxis Verified 01/12/17 09:03 shellfish derived [Shellfish] Allergy Anaphylaxis Verified 01/12/17 09:03 Review of Systems ROS Statement: Those systems with pertinent positive or pertinent negative responses have been documented in the HPI. ROS Other: All systems not noted in ROS Statement are negative. Limitations: ROS unobtainable due to patients medical condition General Exam General appearance: alert, in distress Head exam: Present: atraumatic, normocephalic Eye exam: Present: normal appearance, PERRL, scleral icterus, conjunctival injection. Absent: EOMI (Patient appears unable to follow gaze to the left of midline) ENT exam: Present: normal oropharynx Neck exam: Present: normal inspection, full ROM Respiratory exam: Present: respiratory distress, wheezes. Absent: rales, rhonchi, stridor Cardiovascular Exam: Present: tachycardia, normal heart sounds. Absent: systolic murmur, diastolic murmur, rubs, gallop GI/Abdominal exam: Present: soft. Absent: distended, tenderness, guarding, rebound, mass Extremities exam: Present: normal inspection, normal capillary refill. Absent: pedal edema, calf tenderness Back exam: Present: normal inspection Neurological exam: Present: alert, motor sensory deficit. Absent: CN II-XII intact Skin exam: Present: warm, dry, intact Stroke MDM - Lab Data Result diagrams: 04/26/18 04:45 04/26/18 04:45 Lab Results 04/26/18 04/26/18 04/26/18 Range/Units 04:35 04:45 04:45 WBC 11.8 H (3.8-10.6) k/uL RBC 4.98 (4.30-5.90) m/uL Hgb 14.3 (13.0-17.5) gm/dL Hct 48.0 (39.0-53.0) % MCV 96.4 (80.0-100.0) fL MCH 28.6 (25.0-35.0) pg MCHC 29.7 L (31.0-37.0) g/dL RDW 15.3 (11.5-15.5) % Plt Count 168 (150-450) k/uL Neutrophils % 85 % Lymphocytes % 9 % Monocytes % 4 % Eosinophils % 1 % Basophils % 0 % Neutrophils # 10.0 H (1.3-7.7) k/uL Lymphocytes # 1.0 (1.0-4.8) k/uL Monocytes # 0.5 (0-1.0) k/uL Eosinophils # 0.1 (0-0.7) k/uL Basophils # 0.0 (0-0.2) k/uL Hypochromasia Moderate PT (9.0-12.0) sec INR (<1.2) APTT (22.0-30.0) sec Sodium 139 (137-145) mmol/L Potassium 5.3 H (3.5-5.1) mmol/L Chloride 108 H (98-107) mmol/L Carbon Dioxide 20 L (22-30) mmol/L Anion Gap 11 mmol/L BUN 29 H (9-20) mg/dL Creatinine 1.56 H (0.66-1.25) mg/dL Est GFR (CKD-EPI)AfAm 52 (>60 ml/min/1.73 sqM) Est GFR (CKD-EPI)NonAf 45 (>60 ml/min/1.73 sqM) Glucose 169 H (74-99) mg/dL POC Glucose (mg/dL) 169 H (75-99) mg/dL POC Glu Hand Washer Nicolasa Hope Calcium 9.1 (8.4-10.2) mg/dL Total Bilirubin 1.9 H (0.2-1.3) mg/dL AST 58 (17-59) U/L ALT 56 (21-72) U/L Alkaline Phosphatase 75 (38-126) U/L Total Creatine Kinase (55-170) U/L CK-MB (CK-2) (0.0-2.4) ng/mL CK-MB (CK-2) Rel Index Troponin I (0.000-0.034) ng/mL Total Protein 6.9 (6.3-8.2) g/dL Albumin 4.1 (3.5-5.0) g/dL 04/26/18 04/26/18 Range/Units 04:45 04:45 WBC (3.8-10.6) k/uL RBC (4.30-5.90) m/uL Hgb (13.0-17.5) gm/dL Hct (39.0-53.0) % MCV (80.0-100.0) fL MCH (25.0-35.0) pg MCHC (31.0-37.0) g/dL RDW (11.5-15.5) % Plt Count (150-450) k/uL Neutrophils % % Lymphocytes % % Monocytes % % Eosinophils % % Basophils % % Neutrophils # (1.3-7.7) k/uL Lymphocytes # (1.0-4.8) k/uL Monocytes # (0-1.0) k/uL Eosinophils # (0-0.7) k/uL Basophils # (0-0.2) k/uL Hypochromasia PT 12.1 H (9.0-12.0) sec INR 1.2 H (<1.2) APTT 22.7 (22.0-30.0) sec Sodium (137-145) mmol/L Potassium (3.5-5.1) mmol/L Chloride (98-107) mmol/L Carbon Dioxide (22-30) mmol/L Anion Gap mmol/L BUN (9-20) mg/dL Creatinine (0.66-1.25) mg/dL Est GFR (CKD-EPI)AfAm (>60 ml/min/1.73 sqM) Est GFR (CKD-EPI)NonAf (>60 ml/min/1.73 sqM) Glucose (74-99) mg/dL POC Glucose (mg/dL) (75-99) mg/dL POC Glu Hand Washer ID Calcium (8.4-10.2) mg/dL Total Bilirubin (0.2-1.3) mg/dL AST (17-59) U/L ALT (21-72) U/L Alkaline Phosphatase (38-126) U/L Total Creatine Kinase 56 (55-170) U/L CK-MB (CK-2) 2.1 (0.0-2.4) ng/mL CK-MB (CK-2) Rel Index 3.8 Troponin I 0.262 H* (0.000-0.034) ng/mL Total Protein (6.3-8.2) g/dL Albumin (3.5-5.0) g/dL - Medical Decision Making Patient's 67-year-old man with appears to be large ischemic stroke. Patient evaluated by stroke team and they would like to transfer to [facility] for further care. - EKG Data -: EKG Interpreted by Me EKG shows normal: sinus rhythm, axis (Aorta axis), QRS complexes (Voltage QRS complex), ST-T waves (T inversions anterolateral leads) Rate: tachycardia (Rate 108 bpm) Past Medical History Past Medical History: Chest Pain / Angina, Heart Failure, Hyperlipidemia, Hypertension, Myocardial Infarction ([place]), Osteoarthritis (OA), Pulmonary Embolus (PE) Additional Past Medical History / Comment(s): " POSSIBLE PULMONARY EMBOLUS PER PATIENT",See Dr May's H&P Last Myocardial Infarction Date:: 1994 History of Any Multi-Drug Resistant Organisms: None Reported Past Surgical History: Heart Catheterization With Stent, Orthopedic Surgery Additional Past Surgical History / Comment(s): RIGHT KNEE SURGERY -ARTHROTOMY Past Anesthesia/Blood Transfusion Reactions: No Reported Reaction Date of Last Stent Placement:: 1994 Smoking Status: Current every day smoker - Past Family History Mother Family Medical History: Cancer, Pulmonary Embolus Additional Family Medical History / Comment(s): blood cancer, unsure of type, 1978 Father Family Medical History: Cancer, COPD Additional Family Medical History / Comment(s): Lung Cancer, 1997 Brother(s) Family Medical History: Hypertension, Myocardial Infarction ([place]) Additional Family Medical History / Comment(s): #1 stroke, 1988. #2 [place] , 2013 Sister(s) Family Medical History: Diabetes Mellitus, Hypertension Course Vital Signs 04/26/18 04/26/18 04/26/18 04:29 04:55 04:58 Temperature 97.5 F L 97.4 F L Pulse Rate 63 107 H 102 H Respiratory 32 H 25 H Rate Blood Pressure 235/141 234/83 O2 Sat by Pulse 95 98 Oximetry 04/26/18 04/26/18 04/26/18 05:09 05:10 05:25 Temperature 97.5 F L 97.5 F L Pulse Rate 104 H 105 H 98 Respiratory 26 H 24 Rate Blood Pressure 151/123 139/107 O2 Sat by Pulse 97 98 Oximetry 04/26/18 04/26/18 04/26/18 05:40 05:55 06:10 Temperature 97.4 F L 97.5 F L 97.4 F L Pulse Rate 98 94 95 Respiratory 25 H 24 26 H Rate Blood Pressure 118/89 116/96 129/95 O2 Sat by Pulse 98 98 99 Oximetry 04/26/18 04/26/18 06:25 06:35 Temperature 97.5 F L 97.5 F L Pulse Rate 93 93 Respiratory 28 H 27 H Rate Blood Pressure 128/110 123/97 O2 Sat by Pulse 99 98 Oximetry - Reevaluation(s) Reevaluation #1: 04/26/18 05:15 Patient's partner has arrived and states that she had seen him around 10 PM, and he was playing solitaire with computer. She states that she woke up after 3 :30 in the morning to let the dogs out and then she found him on the couch in a strange position. His speech was slurred and he was unable to get up so she called EMS. Critical Care Time Critical Care Time: Yes (35 minutes) Disposition Clinical Impression: Acute ischemic right MCA stroke Disposition: OTHER INSTITUTION NOT DEFINED Condition: Critical Is patient prescribed a controlled substance at d/c from ED?: No Referrals: Kermit Scott MD [Primary Care Provider] - 1-2 days - Out of Hospital Transfer - Req. Specs Out of Hospital Transfer - Requested Specifics: Neurological ICU
[2018-04-26] MEDS ORDERED: LABETALOL 5 MG/ML VIAL MDV IVP STA (04:48)
--- NOTE | 2018-04-26 04:55 | XR ---
EXAMINATION TYPE: XR chest 1V portable DATE OF EXAM: 04/26/2018 COMPARISON: 12/16/2016 HISTORY: Weakness TECHNIQUE: Single frontal view of the chest is obtained. FINDINGS: Heart appears enlarged. There is mild pulmonary congestion. Thoracic aorta is atheromatous . There are chest leads. IMPRESSION: There is new mild pulmonary interstitial edema compared to last exam. There could be mil d heart failure.
[2018-04-26] MEDS ORDERED: IPRATROPIUM-ALBUTEROL 3 ML NEB INHALATION STA (04:56)
[2018-04-26 04:58] LABS: Basophils % (A) 0 %; Eosinophils # (A) 0.1 k/uL (0-0.7); Eosinophils % (A) 1 %; HGB 14.3 gm/dL (13.0-17.5); Hypochromasia Moderate; Lymphocytes % (A) 9 %; MCH 28.6 pg (25.0-35.0); MCHC 29.7 g/dL (31.0-37.0); MCV 96.4 fL (80.0-100.0); Mean Platelet Volume 7.6; Monocytes # (A) 0.5 k/uL (0-1.0); Monocytes % (A) 4 %; Neutrophils % (A) 85 %; Platelet Count 168 k/uL (150-450); RBC 4.98 m/uL (4.30-5.90); RDW 15.3 % (11.5-15.5); WBC 11.8 k/uL (3.8-10.6)
[2018-04-26 05:06] LABS: INR 1.2 (<1.2); Partial Thromboplastin Time 22.7 sec (22.0-30.0); Prothrombin Time 12.1 sec (9.0-12.0)
[2018-04-26 05:08] LABS: Albumin 4.1 g/dL (3.5-5.0); Calcium 9.1 mg/dL (8.4-10.2); Potassium 5.3 mmol/L (3.5-5.1); Total Bilirubin 1.9 mg/dL (0.2-1.3); Total Protein 6.9 g/dL (6.3-8.2)
[2018-04-26 05:19] LABS: Creatine Kinase MB 2.1 ng/mL (0.0-2.4)
[2018-04-26 05:27] LABS: Troponin I 0.262 ng/mL (0.000-0.034)
--- NOTE | 2018-04-26 05:44 | CT ---
EXAMINATION TYPE: CT angio head neck DATE OF EXAM: 04/26/2018 HISTORY: CODE STROKE COMPARISON: None CT DLP: 518 mGycm. Automated Exposure Control for Dose Reduction was Utilized. TECHNIQUE: CTA scan of the neck is performed with IV Contrast, patient injected with 65 mL of Isovue 370, axial images are obtained, coronal and sagittal reformatted images are reviewed. Three-D recons tructed images are created on an independent workstation and reviewed. FINDINGS: There are 3-D post processed images. There is normal branching pattern of the great vessels on the aortic arch. There is bilateral arteria l flow in the subclavian arteries. There is extensive plaque formation in the distal left common carotid artery. There is subtotal occlu angel of the proximal left internal carotid artery. Exam is limited by motion. There is arterial flow in the right common internal and external carotid artery. There is probably 50% stenosis at the origi n of the right internal carotid artery. Evaluation of the vertebral arteries is limited due to motion . As best as one can tell there is arterial flow in both distal vertebral arteries and the vertebroba silar artery system. There is arterial flow in a single left anterior cerebral artery. The right anterior cerebral artery is not definitely seen. There is bilateral arterial flow in the middle cerebral arteries. Posterior c erebral artery flow was not well demonstrated. There is contrast opacification of the venous sinuses. There is no evidence of intracranial hemorrhage. There is no evidence of neovascularity or intracran ial aneurysm. IMPRESSION: Within the limitations of the exam there is subtotal occlusion of the left internal carot id artery at its origin. There is possibly only a single anterior cerebral artery flow on the left si de. We could not demonstrate posterior cerebral artery flow. Is not clear if this is due to motion or act ual occlusive disease.
[2018-04-26] MEDS ORDERED: ASPIRIN 300 MG SUPP RECTAL STA (05:49)
[2018-04-26] MEDS ORDERED: SODIUM CHLORIDE 0.9% 1,000 ML IV ONE (05:49)
[2018-04-26 06:50] VITALS: PULSE 93; TEMP 97.5
[2018-04-26 06:59] VITALS: BP 123/97; RESP 27
== END 2018-04-26 06:40 | disposition other institution (70) ==
LOC: EC 04:22
DX: I63.511 Cerebral infarction due to unspecified occlusion or stenosis of right middle cerebral artery (principal); R29.729 NIHSS score 29; I11.0 Hypertensive heart disease with heart failure; I50.9 Heart failure, unspecified; I25.2 Old myocardial infarction; F17.200 Nicotine dependence, unspecified, uncomplicated; Z86.711 Personal history of pulmonary embolism; Z95.5 Presence of coronary angioplasty implant and graft; Z82.3 Family history of stroke; Z79.899 Other long term (current) drug therapy; Z91.041 Radiographic dye allergy status; Z91.048 Other nonmedicinal substance allergy status; Z91.018 Allergy to other foods; Z91.013 Allergy to seafood
CPT/HCPCS: 99291; 96374; 96375 ×2; 96360; 36415; 94660; 94640; 93005; 80053; 82550; 82553; 84484; 85025; 85610; 85730; 71045; 70496; 70450; 70498; J1200; J2930; Q9967